=== PATIENT | male | born 1955 | race Caucasian/White ===

== ENCOUNTER 2025-05-27 19:33 | Inpatient (IN) ==
[~2025-05-27 19:33] MED LIST: ETOMIDATE 2 MG/ML 20 ML VIAL IV ONE; ROCURONIUM BROMIDE 10 MG/ML 5 ML VIAL IV ONE
[2025-05-27] MEDS: OPTIRAY 320 125ml IV ONE (20:15)
[2025-05-27 20:18] LABS: Alanine Aminotransferase 370.0 U/L (7-52); Albumin Globulin Ratio 1.2 (0.9-2); Alkaline Phosphatase 76.0 U/L (34-104); Anion Gap 15.0 (3-11); Bilirubin,Total 0.9 mg/dl (0.2-1.0); Blood Urea Nitrogen 21.0 mg/dl (6-23); Calcium 9.2 mg/dl (8.6-10.3); Carbon Dioxide 22.0 mmol/L (21-32); Chloride 107.0 mmol/L (98-107); Creatine Kinase 154.0 U/L (30-223); Creatinine Clr Calc Pharmacy 70.8 ml/min; Globulin 3.7 gm/dl (2.5-4.0); Glucose 164.0 mg/dl (70-99(Fasting)); Lipase 82.0 U/L (11-82); Magnesium 2.3 mg/dl (1.7-2.4); Potassium 3.4 mmol/L (3.5-5.1); Sodium 144.0 mmol/L (136-145); Total Protein 8.1 gm/dl (6.0-8.3)
[2025-05-27 20:19] LABS: Hematocrit (blood only) 43.2 % (42.0-52.0); Hemoglobin 14.1 g/dl (14.0-18.0); Mean Corpuscular Hemoglobin 29.9 pg (25.0-34.0); Mean Corpuscular Volume 91.5 fL (80.0-100.0); Platelet Count 122 K/uL (130-400); RDW Standard Deviation 48.7 fL (36.4-46.3); Red Blood Count 4.72 M/uL (4.70-6.10); White Blood Count 22.77 K/ul (4.8-10.8)
--- NOTE | 2025-05-27 20:27 | CT Scan Report ---
Exam(s): CT HEAD Without Contrast EXAM: CT Head Without Intravenous Contrast CLINICAL HISTORY: Trauma TECHNIQUE: Axial computed tomography images of the head/brain without intravenous contrast. CTDI is 37.61 mGy and DLP is 702.46 mGy-cm. Automated exposure control was utilized for the study. A dose lowering technique was utilized adhering to the principles of ALARA. COMPARISON: No relevant prior studies available. FINDINGS: Brain: No intracranial hemorrhage, mass-effect or midline shift. No abnormal extra axial fluid. No evidence of acute infarct. Mild periventricular white matter hypodensities are most consistent with chronic microangiopathy. Ventricles: Unremarkable. No ventriculomegaly. Bones/joints: Unremarkable. No acute fracture. Soft tissues: There is a large right posterior scalp hematoma. Sinuses: Near-complete opacification of the left maxillary sinus with mucous. Mastoid air cells: Unremarkable as visualized. No mastoid effusion. IMPRESSION: 1. No acute intracranial finding. 2. There is a large right posterior scalp hematoma. 3. Near-complete opacification of the left maxillary sinus with mucous. This raises the suspicion for sinusitis. Electronically signed by: Liza Weber MD 05/27/25 20:26 PM
[2025-05-27] MEDS: PROPOFOL IV EMULSION 10 MG/ML 100 ML VIAL IV ONE (20:28)
[2025-05-27] MEDS: ETOMIDATE 2 MG/ML 20 ML VIAL IV ONE (20:29)
[2025-05-27] MEDS: ROCURONIUM BROMIDE 10 MG/ML 5 ML VIAL IV ONE (20:30)
[2025-05-27] MEDS: STAT IV Infusion **Titration per Protocol STA (20:31)
[2025-05-27 20:33] LABS: Immature Granulocytes # (auto) 1.12 K/uL (0.01-0.20); Immature Granulocytes % (auto) 4.9 %; Thyroid Stimulating Hormone 9.899 uIu/ml (0.300-4.500)
--- NOTE | 2025-05-27 20:52 | CT Scan Report ---
Exam(s): CT C SPINE EXAM: CT Cervical Spine Without Intravenous Contrast CLINICAL HISTORY: Fall, trauma. TECHNIQUE: Axial computed tomography images of the cervical spine without intravenous contrast. CTDI is 26.96 mGy and DLP is 563.17 mGy-cm. Automated exposure control was utilized for the study. A dose lowering technique was utilized adhering to the principles of ALARA. COMPARISON: No relevant prior studies available. FINDINGS: Vertebrae: Degenerative changes of the cervical spine are noted. No acute fracture. No malalignment. Discs/spinal canal/neural foramina: No acute findings. No significant spinal canal stenosis. Soft tissues: Unremarkable. IMPRESSION: No acute finding of the cervical spine. Electronically signed by: Liza Weber MD 05/27/25 20:51 PM
[2025-05-27] MEDS: RAPID SEQUENCE INDUCTION BAG ONE (21:00)
--- NOTE | 2025-05-27 21:02 | CT Scan Report ---
Exam(s): CTA CHEST IV Amt: 120ml EXAM: CT Angiography Chest With Intravenous Contrast CLINICAL HISTORY: Cardiac arrest TECHNIQUE: Axial computed tomographic angiography images of the chest with intravenous contrast. MIPS images were created and reviewed. CTDI is 11. 87 mGy and DLP is 5.94 mGy-cm. Automated exposure control was utilized for the study. A dose lowering technique was utilized adhering to the principles of ALARA. MIP reconstructed images were created and reviewed. COMPARISON: No relevant prior studies available. FINDINGS: Pulmonary arteries: Dilated main pulmonary artery measuring 3.4 cm. No pulmonary embolus. Aorta: Mild atherosclerosis. No aneurysm. Lungs: Dependent airspace opacities could represent atelectasis, can not exclude aspiration. Interseptal thickening is concerning for pulmonary edema. Pleural space: Unremarkable. No significant effusion. No pneumothorax. Heart: Dense coronary artery calcifications are present. No cardiomegaly. No significant pericardial effusion. No evidence of RV dysfunction. Bones/joints: Nondisplaced rib fractures of the anterior left 3rd through 6th ribs. There are degenerative changes of the spine. No acute fracture. Soft tissues: Unremarkable. Lymph nodes: Unremarkable. No enlarged lymph nodes. Tubes, lines and devices: The endotracheal tube is in good position. IMPRESSION: 1. No pulmonary embolus. 2. Dependent airspace opacities could represent atelectasis, can not exclude aspiration. 3. Interseptal thickening is concerning for pulmonary edema. 4. Nondisplaced rib fractures of the anterior left 3rd through 6th ribs. 5. There is dilation of the pulmonary arteries. This is concerning for pulmonary artery hypertension. 6. Dense coronary artery calcifications are present. Electronically signed by: Liza Weber MD 05/27/25 21:01 PM
--- NOTE | 2025-05-27 21:21 | XRay Report ---
EXAM: Portable AP chest radiograph TECHNIQUE: AP portable radiograph of the chest was obtained. INDICATION: Shortness of breath Comparison: None. FINDINGS: LINES and TUBES: Endotracheal tube with tip 2.4 cm above the vinicius. CARDIOVASCULAR: Cardiac silhouette is enlarged in size. LUNGS/PLEURA: Mild interstitial pulmonary edema. Patchy densities of the lungs may represent an airspace process including pneumonia and pulmonary edema. Small pleural fluids may be present. No discernible pneumothorax. OSSEOUS/OTHER: No displaced acute osseous process identified. IMPRESSION: Congestive changes of the cardiovascular system as above. Patchy densities of the lungs may represent an airspace process including pneumonia and pulmonary edema. Electronically signed by Hari Vitale 05-27-2025 9:20 PM
[2025-05-27 21:27] LABS: INR 1.2 (0.9-1.1); Partial Thromboplastin Time 24 Seconds (21-31); Prothrombin Time 12.4 Seconds (9.0-12.0)
--- NOTE | 2025-05-27 21:32 | History & Physical Report ---
Date of Service May 27, 2025 Assessment & Plan (1) Cardiac arrest: (2) On mechanically assisted ventilation: (3) Sinus tachycardia: (4) Left bundle branch block: (5) HTN (hypertension): (6) Laceration of head: (7) Elevated LFTs: Plan Patient is a 70 y/o M admitted after experiencing cardiac arrest in the [employer] game. Currently mechanically ventilated and sedated. #Cardiac arrest #LBBB, unsure if new Exact cause at this time is unknown but could be related to ACS and, given defibrillation x 3, could also suspect ventricular arrhythmia Initial troponin of 50.6 which increased to >2000 in 2 hour repeat. Unable to obtain medical history from patient, but patient's brother states that only medical history he has knowledge of is of sarcoidosis and hypertension Discussed with android ui developer who advised that no urgent catheterization is required, and recommended a TTE be done in the morning and patient to be started on heparin drip. Both of these were ordered. Cardiology consulted. Will appreciate their recommendations. Will admit to ICU #Mechanically ventilated Intubated in the field Given chest CT and chest x-ray findings, possible that patient may have aspirated or had a developing infectious process Admit to ICU #Head trauma // Scalp laceration Noted to have 2 posterior scalp lacerations consequent of hitting his head when he collapsed Mic placed to 1 laceration in the ICU, the other laceration to be allowed to heal by secondary intention #Rib fractures Fractures on anterior left side from 3rd6th ribs noted on chest CTA; no PTX Will likely need pain control once he is more awake #HTN Unsure if he takes any medications at home Patient hypotensive, possibly due to sedation as his BP was elevated while in the ED. Currently on Levophed. #Sarcoidosis Noted by patient's brother; further hx unknown History of Present Illness Chief Complaint: Cardiac arrest Primary Care Provider: NO PCP Patient is a 70-year-old male with no known medical history save for hypertension endorsed by patient's brother who came to the emergency department via EMS after being found in cardiac arrest in a [employer] game. Patient had been walking in his usual state of health earlier in the evening, and then suddenly fainted with impact to posterior aspect of his head. Someone noticed him fall and went to check on him and found that he had no pulse, and immediately started CPR. After EMS arrived, patient was defibrillated x 3 after which ROSC was obtained and patient transported to emergency department. History is limited as patient is unresponsive and mechanically ventilated. Patient alone in ED. Patient has a brother (who is a physician) who will be driving over from [place] and another brother coming from [place]. He had another brother that unfortunately approximately a month ago. Labs/Imaging: CBC with leukocytosis of 22.77 with neutrophilic predominance, hemoglobin of 14.1, platelets of 122. CMP without significant electrolyte abnormality save for mild hypokalemia, creatinine 1.26. Blood sugar 164. Magnesium of 2.3. AST elevated at 244, ALT also elevated at 370, normal alk phos. TSH elevated at 9.899 and free T4 of 0.61. Troponin elevated at 50.6 with ~5-hour repeat showing 2314.5. C-spine CT unremarkable. Chest CTA w/o PE but s howing possible dense coronary artery calcification, possible pulmonary edema and rib fractures on the anterior left side from 3rd6th ribs. Head CT without acute changes/hemorrhage/SAH, and showing right posterior scalp hematoma. Allergies Allergy/AdvReac Type Severity Reaction Status Date / Time Unable to Assess Allergy Verified 05/27/25 20:04 Home Medications Medication Instructions Recorded Confirmed Type Unobtainable 05/27/25 05/27/25 History Past Med/Surg History Problem List (Updated 05/28/25 @ 19:32 by Francisca Bates MD) Aspiration pneumonia Rhinovirus infection Cardiomyopathy Laceration of head Elevated LFTs Left bundle branch block (Acute) HTN (hypertension) Sinus tachycardia (Acute) On mechanically assisted ventilation (Acute) Cardiac arrest (Acute) Medical History Sarcoid Social History Smoking Status: Unknown if ever smoked Hx Alcohol Use: Yes Hx Substance Use: No Preferred Language: Divehi Communication Ability: intubated Communication Ability Comment: intubated and sedated Casing Builder Required: No Beliefs That Will Affect Care: None Current Living Situation: Alone Other Information That Helps Us Care for You: No Feels Safe at Home: Yes Assistive Devices: None Review of Systems Review of Systems: As per HPI Physical Exam Physical Exam: GENERAL: patient sedated and not responding to questions, does withdraw from painful stimuli and pupils equal and reactive, febrile HEAD: laceration in posterior scalp with mic in place. THROAT: normal to visual inspection CHEST: symmetric chest expansions with respirations CARDIO: tachycardic, no r/m/g PULMONARY: mechanically ventilated GI: soft, nondistended EXTREMITIES: no swelling in b/l LE, no obvious deformities noted Results & Data Results & Data Vital Signs (Past 12 Hours) Vital Signs Temp Pulse Resp BP Pulse Ox O2 Del Method FiO2 05/27/25 21:18 38.0 C H 131 H 20 94 05/27/25 21:15 170/110 H 05/27/25 21:15 170/110 H 05/27/25 21:15 170/110 H 05/27/25 21:01 38 C H 05/27/25 21:00 180/115 H 05/27/25 21:00 180/115 H 05/27/25 20:51 182/115 H 05/27/25 20:51 132 H 182/115 H 100 05/27/25 20:41 16 90 05/27/25 20:30 191/123 H 05/27/25 20:30 191/123 H 05/27/25 20:17 34.6 C L 05/27/25 20:15 Mechanical Vent 05/27/25 20:14 199/129 H 05/27/25 19:51 116 H 23 99 05/27/25 19:49 164/93 H 05/27/25 19:49 164/93 H 05/27/25 19:48 107 H 31 H 99 05/27/25 19:42 133 H 25 H 100 05/27/25 19:41 100 05/27/25 19:41 Ambu-Bag 05/27/25 19:40 123 H 05/27/25 19:39 209/118 H 05/27/25 19:39 209/118 H 05/27/25 19:15 129 H 209/118 H 100 Ambu-Bag Critical Care Time 42 minutes Supervising Physician Co-Signing Physician Notes Attending addendum: I have physically seen this patient, have supervised the medical residents activities, and agree with the H&P unless as otherwise noted. Assessment and Plan: The patient is a 70-year-old male who presented to the emergency department as an [id number] cardiac arrest, underwent defibrillation x 3, was intubated in the field, and obtained ROSC. [id number] cardiac arrest- Intubated in the field Underwent defibrillation x 3 in the field Obtained ROSC Upon arrival to the emergency department patient continued on mechanical ventilation, CT chest and x-rays were ordered, with reading of potential aspiration or developing infectious process. Initial troponin was 50.6, which increased to greater than 2002-hour repeat director smb sales Baldev suggested no urgent cardiac catheterization was was required The patient will be admitted to the ICU for serial cardiac enzymes, serial EKG's, cardiac rhythm monitoring and a 2-D echocardiogram with Dopplers. Head trauma/scalp laceration- Stapled and closed in the ED/ICU Rib fractures- X-rays noted anterior left side with fractures from the 3rd through 6th ribs without pneumothorax Will be managed with more direct pain control when patient is more alert Sarcoidosis- Unclear enrolled at this point declining at this time Resident Activity Tracking Resident Involvement: Resident Care Provided Care Provided: Adult Hospital Medicine
[2025-05-27] MEDS: PROPOFOL BOLUS FROM BAG IV PRN (21:42)
--- NOTE | 2025-05-27 22:18 | Emergency Department Note ---
Impression & Plan Cardiac arrest, On mechanically assisted ventilation, Left bundle branch block, Sinus tachycardia ED Provider Note NAME: CORNELIO PEREZ III AGE: 70 SEX: M : 1955 ARRIVES VIA: Ambulance INFORMANT: Patient, ED PROVIDER(S): Frank Mai MD CHIEF COMPLAINT: Cardiac arrest HPI: This is a 70-year-old male presenting postcardiac arrest. EMS physician tells these history. Patient was reportedly walking at the football game when he had a sudden onset collapse. Bystanders started CPR and he was shocked by BLS with an AED 3 times with achievement of ROSC. He had an EKG done there that showed a left bundle branch block and sinus tachycardia. He did have into the back of his skull. He was not intubated was ventilated with an Igel airway. He had some possible spontaneous movement. He was started with amiodarone 150 mg by EMS. ROS: Unable to obtain PHYSICAL EXAMINATION: General: Overbreathing, Head: Large posterior hematoma Eyes: Eyes 4 mm, reactive, do not track or respond to threat Ear, nose, throat: Normal external exam Neck: In c-collar Respiratory: lungs clear to auscultation bilaterally Cardiovascular: Tachycardic regular rate/rhythm, no murmur GI: soft, Extremities: No obvious deformity Neuro: GCS 3 Skin: Warm, dry, and intact MEDICAL DECISION MAKING: This is a 70-year-old male presenting postcardiac arrest. At this time patient has no clear neurologic status. He is GCS 3. There was a possible episode where he may have had decorticate posturing. Due to airway concerns, will intubate the patient as he has a GCS 3. - Patient intubated successfully as below. - Patient sent to CAT scan imaging. Shows no intracranial hemorrhage, does show pulm hypertension but otherwise no PE. No cervical spine fracture. - Basic blood work is reviewed showing leukocytosis to 22. Plate count 122. Sodium 146, potassium 3.4, anion gap 15 - Elevated transaminitis with a troponin elevation of 50.6. - Patient's brother calls in a few hours later. He is currently in [place] and to the patient generally healthy aside from being mildly overweight with sarcoidosis. Otherwise no significant medical history, cardiac disease. - ECG independently interpreted by me with sinus tachycardia, wide-complex, short RI, left bundle branch block, no Sgarbossa criteria, no ST segment elevations consistent with STEMI criteria Endotracheal Intubation Indication GCS 3, airway protection The patient was on 100% oxygen via NRB prior to the procedure. Suction, airway equipment, RSI drugs, respiratory equipment, and appropriate personnel were prepared prior to the initiation of the procedure. A time out was taken. Induction was performed with etomidate, rocuronium. After observing the clinical benefit of the medications, the airway was easily visualized utilizing a video laryngoscopy. A 7.5 size ETT tube was placed atraumatically to 26 cm using standard technique. The cuff inflated without signs of malfunction. There were bilateral breath sounds, positive colormetric change, no gastric sounds, a good capnography waveform, and post procedure pulse oximetry was 99%. Post intubation sedation and paralysis was administered using propofol. There were no complications. Differential diagnosis: ACS, PE, electro disturbance, anemia Independent History obtained from: EMS Diagnostics interpreted by me: ECG: See above Cardiac Monitoring: An order was placed for continuous cardiac monitoring. The monitor shows a rate of 94 with sinus rhythm. Critical Care Note: I have personally spent 67 minutes of critical care time in the direct management of this patient. This includes bedside care, interpretation of diagnostic studies, and testing, discussion with consultants, patient, and family members, and other required patient management activities. This 67 minutes is in excess of all separately billable procedures. Past Med/Surg History Problem List (Updated 05/27/25 @ 23:46 by Frank Mai MD) Left bundle branch block (Acute) HTN (hypertension) Sinus tachycardia (Acute) On mechanically assisted ventilation (Acute) Cardiac arrest (Acute) Social History Smoking Status: Unknown if ever smoked Feels Safe at Home: Yes Allergies Allergies Allergy/AdvReac Type Severity Reaction Status Date / Time Unable to Assess Allergy Verified 05/27/25 20:04 Home Meds Home Medications Medication Instructions Recorded Confirmed Unobtainable 05/27/25 05/27/25 Results & Data (ED) Vital Signs Vital Signs - 24 hr 05/27/25 19:15 05/27/25 19:39 05/27/25 19:39 Temperature Temperature Source Pulse Rate 129 H Pulse Rate from SpO2 Sensor Respiratory Rate Blood Pressure 209/118 H 209/118 H 209/118 H Blood Pressure Mean 148 166 166 Pulse Oximetry 100 Oxygen Delivery Method Ambu-Bag Fraction of Inspired Oxygen Sepsis Recent Fever Within 48 Hours No Sepsis New/Unexplained Change in Mental Status No Sepsis Action Taken by Nursing No Action Required End-Tidal CO2 05/27/25 19:40 05/27/25 19:41 05/27/25 19:41 Temperature Temperature Source Pulse Rate 123 H Pulse Rate from SpO2 Sensor Respiratory Rate Blood Pressure Blood Pressure Mean Pulse Oximetry 100 Oxygen Delivery Method Ambu-Bag Fraction of Inspired Oxygen Sepsis Recent Fever Within 48 Hours Sepsis New/Unexplained Change in Mental Status Sepsis Action Taken by Nursing End-Tidal CO2 05/27/25 19:42 05/27/25 19:48 05/27/25 19:49 Temperature Temperature Source Pulse Rate 133 H 107 H Pulse Rate from SpO2 Sensor 130 H 107 H Respiratory Rate 25 H 31 H Blood Pressure 164/93 H Blood Pressure Mean 111 Pulse Oximetry 100 99 Oxygen Delivery Method Fraction of Inspired Oxygen Sepsis Recent Fever Within 48 Hours Sepsis New/Unexplained Change in Mental Status Sepsis Action Taken by Nursing End-Tidal CO2 05/27/25 19:49 05/27/25 19:51 05/27/25 20:14 Temperature Temperature Source Pulse Rate 116 H Pulse Rate from SpO2 Sensor 117 H Respiratory Rate 23 Blood Pressure 164/93 H 199/129 H Blood Pressure Mean 111 146 Pulse Oximetry 99 Oxygen Delivery Method Fraction of Inspired Oxygen Sepsis Recent Fever Within 48 Hours Sepsis New/Unexplained Change in Mental Status Sepsis Action Taken by Nursing End-Tidal CO2 05/27/25 20:15 05/27/25 20:17 05/27/25 20:30 Temperature 34.6 C L Temperature Source Trent Cath ( Temp Sensing) Pulse Rate Pulse Rate from SpO2 Sensor Respiratory Rate Blood Pressure 191/123 H Blood Pressure Mean 136 Pulse Oximetry Oxygen Delivery Method Mechanical Vent Fraction of Inspired Oxygen Sepsis Recent Fever Within 48 Hours Sepsis New/Unexplained Change in Mental Status Sepsis Action Taken by Nursing End-Tidal CO2 05/27/25 20:30 05/27/25 20:41 05/27/25 20:51 Temperature Temperature Source Pulse Rate 132 H Pulse Rate from SpO2 Sensor Respiratory Rate 16 Blood Pressure 191/123 H 182/115 H Blood Pressure Mean 136 134 Pulse Oximetry 100 Oxygen Delivery Method Fraction of Inspired Oxygen 90 Sepsis Recent Fever Within 48 Hours Sepsis New/Unexplained Change in Mental Status Sepsis Action Taken by Nursing End-Tidal CO2 44 05/27/25 20:51 05/27/25 21:00 05/27/25 21:00 Temperature Temperature Source Pulse Rate Pulse Rate from SpO2 Sensor Respiratory Rate Blood Pressure 182/115 H 180/115 H 180/115 H Blood Pressure Mean 134 130 130 Pulse Oximetry Oxygen Delivery Method Fraction of Inspired Oxygen Sepsis Recent Fever Within 48 Hours Sepsis New/Unexplained Change in Mental Status Sepsis Action Taken by Nursing End-Tidal CO2 05/27/25 21:01 05/27/25 21:15 05/27/25 21:15 Temperature 38 C H Temperature Source Trent Cath ( Temp Sensing) Pulse Rate Pulse Rate from SpO2 Sensor Respiratory Rate Blood Pressure 170/110 H 170/110 H Blood Pressure Mean 127 127 Pulse Oximetry Oxygen Delivery Method Fraction of Inspired Oxygen Sepsis Recent Fever Within 48 Hours Sepsis New/Unexplained Change in Mental Status Sepsis Action Taken by Nursing End-Tidal CO2 05/27/25 21:15 05/27/25 21:18 05/27/25 21:30 Temperature 38.0 C H 38.0 C H Temperature Source Pulse Rate 131 H 129 H Pulse Rate from SpO2 Sensor 132 H 129 H Respiratory Rate 20 24 Blood Pressure 170/110 H Blood Pressure Mean 127 Pulse Oximetry 94 95 Oxygen Delivery Method Fraction of Inspired Oxygen Sepsis Recent Fever Within 48 Hours Sepsis New/Unexplained Change in Mental Status Sepsis Action Taken by Nursing End-Tidal CO2 44 37 05/27/25 21:30 05/27/25 21:30 05/27/25 21:30 Temperature Temperature Source Pulse Rate Pulse Rate from SpO2 Sensor Respiratory Rate Blood Pressure 143/95 H 143/95 H 143/95 H Blood Pressure Mean 109 109 109 Pulse Oximetry Oxygen Delivery Method Fraction of Inspired Oxygen Sepsis Recent Fever Within 48 Hours Sepsis New/Unexplained Change in Mental Status Sepsis Action Taken by Nursing End-Tidal CO2 Laboratory Data 05/27/25 19:49 05/27/25 19:49 Lab Results 05/27/25 05/27/25 05/27/25 Range/Units 19:49 19:53 20:40 WBC 22.77 H (4.8-10.8) K/ul RBC 4.72 (4.70-6.10) M/uL Hgb 14.1 (14.0-18.0) g/dl POC Hgb 15.6 (14.0-18.0) g/dl Hct 43.2 (42.0-52.0) % POC Hct 46 (42-52) % MCV 91.5 (80.0-100.0) fL MCH 29.9 (25.0-34.0) pg MCHC 32.6 (32.0-36.0) g/dL RDW Std Deviation 48.7 H (36.4-46.3) fL RDW Coeff of Santosh 14.6 H (11.5-14.5) % Plt Count 122 L (130-400) K/uL MPV 12.6 H (9.4-12.4) fL Immature Gran % (Auto) 4.9 % Neut % (Auto) 65.1 % Lymph % (Auto) 18.3 % [place] % (Auto) 10.7 % Eos % (Auto) 0.7 % Baso % (Auto) 0.3 % Neut # (Auto) 14.81 H (1.40-6.50) K/uL Lymph # (Auto) 4.17 H (1.20-3.40) K/uL [place] # (Auto) 2.44 H (0.11-0.59) K/uL Eos # (Auto) 0.16 (0.00-0.50) K/uL Baso # (Auto) 0.07 (0.00-0.20) K/uL Immature Gran # (Auto) 1.12 H (0.01-0.20) K/uL Absolute Nucleated RBC 0.03 (0.00-0.12) K/uL Nucleated RBC % (auto) 0.1 % PT Cancelled 12.4 H INR Cancelled 1.2 H APTT Cancelled 24 PTT Ratio Cancelled 0.9 POC Sodium 146 H (135-144) mmol/L Sodium 144 (136-145) mmol/L POC Potassium 3.4 (3.3-5.0) mmol/L Potassium 3.4 L (3.5-5.1) mmol/L POC Chloride 107 (101-112) mmol/L Chloride 107 (98-107) mmol/L Carbon Dioxide 22 (21-32) mmol/L POC Total CO2 21 L (24-31) mmol/L Anion Gap 15 H (3-11) POC Anion Gap 23.0 (16-25) mmol/L POC BUN 22 H (7-18) mg/dl BUN 21 (6-23) mg/dl Creatinine 1.26 (0.6-1.4) mg/dl POC Creatinine 1.3 (0.6-1.3) mg/dl Est Cr Clr Drug Dosing 70.8 ml/min eGFR 62.13 BUN/Creatinine Ratio 16.7 (10-20) Glucose 164 H (70-99(Fasting)) mg/dl POC Glucose (other) 165 H (70-99) mg/dl Calcium 9.2 (8.6-10.3) mg/dl POC Ioniz Calcium Sukhdev 1.12 (1.12-1.32) mmol/l Magnesium 2.3 (1.7-2.4) mg/dl Total Bilirubin 0.9 (0.2-1.0) mg/dl AST 244 H (13-39) U/L ALT 370 H (7-52) U/L Alkaline Phosphatase 76 (34-104) U/L Total Creatine Kinase 154 (30-223) U/L Troponin I High Sens 50.6 H* (0-20) pg/ml B-Natriuretic Peptide 70 (0-100) pg/ml Total Protein 8.1 (6.0-8.3) gm/dl Albumin 4.4 (3.4-5.0) gm/dl Globulin 3.7 (2.5-4.0) gm/dl Albumin/Globulin Ratio 1.2 (0.9-2) Lipase 82 (11-82) U/L TSH 9.899 H (0.300-4.500) uIu/ml Free T4 0.61 (0.61-1.60) ng/dl Ethyl Alcohol mg/dL < 10.0 (<10.0) mg/dl Administered Medications Propofol (Diprivan) 1,000 mg in 100 mls @ 12.792 mls/hr IV .Q7H50M [facility]; Protocol Stop: 05/30/25 19:59 Last Titration: 05/27/25 21:54 Dose: 20 mcg/kg/min, 12.8 mls/hr Documented By: Titration: 05/27/25 21:50 Dose: 25 mcg/kg/min, 16 mls/hr Documented By: Titration: 05/27/25 21:41 Dose: 30 mcg/kg/min, 19.2 mls/hr Documented By: Admin: 05/27/25 20:27 Dose: 20 mcg/kg/min, 12.8 mls/hr Documented By: MARY Co-signed By: ANJALI Propofol (Propofol Bolus From Bag) 20 mg IV Q5M PRN PRN Reason: Sedation Stop: 05/30/25 19:59 Last Admin: 05/27/25 21:42 Dose: 10 mg Documented By: MARY Co-signed By: CHRISTIANO Discontinued Medications Etomidate (Etomidate 2 Mg/Ml 20 Ml Vial) 20 mg IV ONCE ONE Stop: 05/27/25 20:29 Last Admin: 05/27/25 20:29 Dose: 20 mg Documented By: MARY Fentanyl Citrate (Fentanyl Citrate Pf 100 Mcg/2 Ml Vial) 50 mcg IV NOW ONE Stop: 05/27/25 21:40 Last Admin: 05/27/25 21:43 Dose: 50 mcg Documented By: MARY Fentanyl Citrate (Fentanyl Citrate Pf 100 Mcg/2 Ml Vial) Confirm Administered Dose 100 mcg .ROUTE .STK-MED ONE Stop: 05/27/25 21:40 Last Admin: 05/27/25 21:44 Dose: Not Given Documented By: MARY Ioversol (Optiray 320 125ml) 120 ml IV ONCE ONE Stop: 05/27/25 20:16 Last Admin: 05/27/25 20:15 Dose: 120 ml Documented By: VÍCTOR Miscellaneous (Rapid Sequence Induction Bag) Confirm Administered Dose 1 each N/A .STK-MED ONE Stop: 05/27/25 19:41 Last Admin: 05/27/25 21:00 Dose: Not Given Documented By: MARY Godfreyaneous (Stat Iv Infusion Titration Per Protocol) 1 each N/A NOW STA Stop: 05/27/25 20:01 Last Admin: 05/27/25 20:31 Dose: Not Given Documented By: MARY Propofol (Propofol Iv Emulsion 10 Mg/Ml 100 Ml Vial) Confirm Administered Dose 1,000 mg IV .STK-MED ONE Stop: 05/27/25 20:02 Last Admin: 05/27/25 20:28 Dose: Not Given Documented By: MARY Rocuronium Lorane (Rocuronium Lorane 10 Mg/Ml 5 Ml Vial) 100 mg IV ONCE ONE Stop: 05/27/25 20:30 Last Admin: 05/27/25 20:30 Dose: 100 mg Documented By: MARY Co-signed By: ANJALI Imaging Data Radiologist's Impression: Chest X-Ray 05/27/25 19:41 EXAM: Portable AP chest radiograph TECHNIQUE: AP portable radiograph of the chest was obtained. INDICATION: Shortness of breath Comparison: None. FINDINGS: LINES and TUBES: Endotracheal tube with tip 2.4 cm above the vinicius. CARDIOVASCULAR: Cardiac silhouette is enlarged in size. LUNGS/PLEURA: Mild interstitial pulmonary edema. Patchy densities of the lungs may represent an airspace process including pneumonia and pulmonary edema. Small pleural fluids may be present. No discernible pneumothorax. OSSEOUS/OTHER: No displaced acute osseous process identified. IMPRESSION: Congestive changes of the cardiovascular system as above. Patchy densities of the lungs may represent an airspace process including pneumonia and pulmonary edema. Electronically signed by Hari Vitale 05-27-2025 9:[address] 05/27/25 19:59 Exam(s): CT C SPINE EXAM: CT Cervical Spine Without Intravenous Contrast CLINICAL HISTORY: Fall, trauma. TECHNIQUE: Axial computed tomography images of the cervical spine without intravenous contrast. CTDI is 26.96 mGy and DLP is 563.17 mGy-cm. Automated exposure control was utilized for the study. A dose lowering technique was utilized adhering to the principles of ALARA. COMPARISON: No relevant prior studies available. FINDINGS: Vertebrae: Degenerative changes of the cervical spine are noted. No acute fracture. No malalignment. Discs/spinal canal/neural foramina: No acute findings. No significant spinal canal stenosis. Soft tissues: Unremarkable. IMPRESSION: No acute finding of the cervical spine. Electronically signed by: Liza Weber MD 05/27/25 20:51 PM Chest CTA 05/27/25 19:59 Exam(s): CTA CHEST IV Amt: 120ml EXAM: CT Angiography Chest With Intravenous Contrast CLINICAL HISTORY: Cardiac arrest TECHNIQUE: Axial computed tomographic angiography images of the chest with intravenous contrast. MIPS images were created and reviewed. CTDI is 11. 87 mGy and DLP is 5.94 mGy-cm. Automated exposure control was utilized for the study. A dose lowering technique was utilized adhering to the principles of ALARA. MIP reconstructed images were created and reviewed. COMPARISON: No relevant prior studies available. FINDINGS: Pulmonary arteries: Dilated main pulmonary artery measuring 3.4 cm. No pulmonary embolus. Aorta: Mild atherosclerosis. No aneurysm. Lungs: Dependent airspace opacities could represent atelectasis, can not exclude aspiration. Interseptal thickening is concerning for pulmonary edema. Pleural space: Unremarkable. No significant effusion. No pneumothorax. Heart: Dense coronary artery calcifications are present. No cardiomegaly. No significant pericardial effusion. No evidence of RV dysfunction. Bones/joints: Nondisplaced rib fractures of the anterior left 3rd through 6th ribs. There are degenerative changes of the spine. No acute fracture. Soft tissues: Unremarkable. Lymph nodes: Unremarkable. No enlarged lymph nodes. Tubes, lines and devices: The endotracheal tube is in good position. IMPRESSION: 1. No pulmonary embolus. 2. Dependent airspace opacities could represent atelectasis, can not exclude aspiration. 3. Interseptal thickening is concerning for pulmonary edema. 4. Nondisplaced rib fractures of the anterior left 3rd through 6th ribs. 5. There is dilation of the pulmonary arteries. This is concerning for pulmonary artery hypertension. 6. Dense coronary artery calcifications are present. Electronically signed by: Liza Weber MD 05/27/25 21:[address] 05/27/25 19:59 Exam(s): CT HEAD Without Contrast EXAM: CT Head Without Intravenous Contrast CLINICAL HISTORY: Trauma TECHNIQUE: Axial computed tomography images of the head/brain without intravenous contrast. CTDI is 37.61 mGy and DLP is 702.46 mGy-cm. Automated exposure control was utilized for the study. A dose lowering technique was utilized adhering to the principles of ALARA. COMPARISON: No relevant prior studies available. FINDINGS: Brain: No intracranial hemorrhage, mass-effect or midline shift. No abnormal extra axial fluid. No evidence of acute infarct. Mild periventricular white matter hypodensities are most consistent with chronic microangiopathy. Ventricles: Unremarkable. No ventriculomegaly. Bones/joints: Unremarkable. No acute fracture. Soft tissues: There is a large right posterior scalp hematoma. Sinuses: Near-complete opacification of the left maxillary sinus with mucous. Mastoid air cells: Unremarkable as visualized. No mastoid effusion. IMPRESSION: 1. No acute intracranial finding. 2. There is a large right posterior scalp hematoma. 3. Near-complete opacification of the left maxillary sinus with mucous. This raises the suspicion for sinusitis. Electronically signed by: Liza Weber MD 05/27/25 20:26 PM Discharge Plan Visit Data Chief Complaint: Cardiac Arrest/CPR Stated Complaint: POST CARDIAC ARREST ED Provider: Frank Mai Discharge Problem: Cardiac arrest, On mechanically assisted ventilation, Left bundle branch block, Sinus tachycardia Patient Disposition: Admitted As Inpatient Condition: Critical Discharge Instructions Interventions: ED Discharge Assessment Last Done: 05/27/25 23:25
[2025-05-27] MEDS ORDERED: STAT IV Infusion **Titration per Protocol STA (23:22)
[2025-05-27] MEDS ORDERED: DIPHTHER/TETAN/PERTUS Vaccine (Tdap, Adol/Adult) 0.5mL IM ONE (23:44)
[2025-05-28] MEDS ORDERED: STAT IV Infusion **Titration per Protocol STA
--- NOTE | 2025-05-28 00:08 | Critical Care Consultation ---
Date of Consultation May 28, 2025 Assessment & Plan (1) Cardiac arrest: (2) Left bundle branch block: (3) Elevated LFTs: (4) On mechanically assisted ventilation: (5) Laceration of head: Plan Reason Critically Ill: 70 YOM out of hospital cardiac arrest with ROSC following defibrillation x3. Neuro - Head laceration, sedation for mechanical ventilation, CAM ICU: [facility] - Patient with head strike that occurred when he collapsed- head CT non con- no acute hemorrhage/SDH/SAH, large scalp hematoma. - scalp laceration x2- closure of 1 scalp laceration with sylvia in the ICU, other laceration/abrasion will close by secondary closure secondary to hematoma and very irregular borders - sylvia can be removed after 7 days--- 20september - Will follow neurological exams and pupil exams with pupillometer q2 hours- too early at this time for prognostication - but over breaths vent, did attempt to open eyes, and gag is present - possible post concussive as well - If no improvement consider advanced imaging with MRI - Neuroprotection post arrest- normothermia- 35-37.5 - Sedation- propofol, and fentanyl- daily SBT, if extubated- pain control for rib fractures will be required Cardiac - out of hospital cardiac arrest, LBBB, - Cardiac arrest with ROSC- likely ventricular in nature as AED did recommend shock- defibrillated x3 with return of ROSC - amiodarone 150mg bolus completed- will continue with amiodarone infusion until further workup evaluation completed - correctional cook updated by admitting team- no urgent cath at this time - ECHo in am - Heparin infusion - Cause of arrest at this time is unclear- could possibly be related to hx of sarcoidosis- hopefully brother will be able to provide further information on this - manage electrolytes - Trend troponin and rhythm - Vasopressors at this time secondary to sedation and hypotension - LEVOphed - CVL placed - see separate procedure note Respiratory - Required emergent intubation following cardiac arrest, likely aspiration - Minimal vent settings at this time 7.4/ - CTA chest negative for PE - Aspiration likely- follow clincally - daily SBT as appropriate - Rib fractures noted- no penumothorax GI - Elevated LFT - Elevated LFTS- possible secondary to hypoperfusion during arrest- INR 1.2 - follow daily - If LFTS trend up - will discontinue amiodarone - OGT to LIWS- NPO - initate feedings if unable to extubate in am RENAL/LYTES - No acute needs - maintain electrolytes as above - follow renal funciton - No acute needs - Trent to gravity while intubated and sedated ENDO - No acute needs - TSH 9.8- T4 06 - ICU hyperglycemic protocol HEME - No acute needs - HGB >8, transfuse for active bleeding, symptomatic - heparin as above ID - Aspiration, scalp laceration - follow clinically- at this time elevated WBC likely secondary to stress response - afebrile, will send blood cultures and urine cultures - Scalp laceration- irrigated with 3L saline, no debris noted on medical office representative CT film or CT imaging - 1 laceration closed with sylvia as above - secondary closure on abrasion/laceration - TD and TIG given LINES/IV ACCESS - PIVx2, CVL, Trent, ETT, OGT Continue use of these lines DVT PROPHYLAXIS - SCDs, Heparin infusion DISPO: ICU while intubated and sedated and requiring vasopressors. Hopeful to wake patient up in am and follow nuerological response. I have personally spent 70 minutes of critical care time in the direct management of this patient. This is a life/limb threatening event. This includes time spent evaluating patient, direct bedside care, chart review, placing orders, interpretation of diagnostic studies, discussion with consultants, patient, and family members, as well as other required patient management activities. This time is exclusive of all separately billable procedures, and teaching time and separate from and in addition to any other critical care service time. Thank you for allowing us to participate in the care of this patient. Please re robert to my attending physician's documentation for any further recommendations. History of Present Illness Reason for Consultation: Out of hospital cardiac arrest with ROSC Requesting Physician: Isiah Sam MD Attending Physician: Isiah Sam MD History of Present Illness 70 YOM with no medical records available in our system or [facility] system, he is with one previous encounter noted for sarcoidosis. Patient was brought in by EMS following cardiac arrest at the football game. Per EMS report patient was seen walking and then collapsed striking his head, CPR was reported in progress with arrival of EMS. AED was applied and shocks were recommended. Patient received Defibrillations x3 with return of ROSC. He had an IGEL placed for to manage airway during this arrest, unclear if medications were administered other than amiodarone bolus. Patient was managed in the ER with replacement of Igel with endotracheal tube. He had CT scan of head, cervical spine, CTA of chest, and CXR post intubation. Patient was noted to be moving upper extremities on arrival to ER. Patient was noted to have head laceration to back of his head and large scalp hematoma on CT scan. Patient was then presented for admission by hospitalist service. ICU was consulted, recommended discussion with interventional cardiology as patient was presumably ventricular arrest and presented with LBBB unsure of chronicity. No plans at this time for urgent evaluation by interventional cardiology, will evaluate in am, recommends heparin infusion. Patient will be brought to the ICU for continued management of ventilator, hemodynamics, and continued supportive care. 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 Beliefs That Will Affect Care: None Current Living Situation: Alone Other Information That Helps Us Care for You: No Feels Safe at Home: Yes Assistive Devices: None Review of Systems Review of Systems: unable to be evaluated secondary to intubation and sedation Physical Exam Physical Exam: PHYSICAL EXAM: Head: Laceration x2 to right scalp, abrasion with laceration and macerated edges hematoma right posterior Neuro: PEERLA brisk 3/2, did attempt to open eyes on arrival to ICU, not following commands, overbreathe ventilator and cough/gag on ETT, Chest: equal rise and fall of the chest, no accessory muscle use, no heaves or thrills, Clear to auscultation, on room air, Cardiac: Regular rate and rhythm, telemetry reviewed- LBB, skin cool and dry, cap refill <3 seconds, peripheral pulses +2 no JVD, no murmur, no edema GI: NABS x 4 quadrants, soft, nontender to palpation, no rebound, guarding or tenderness : Trent to gravity draining dilute urine Skin: no rash or erythema Results & Data Results & Data Vital Signs (Past 12 Hours) Vital Signs Temp Pulse Resp BP Pulse Ox O2 Del Method FiO2 05/27/25 22:30 38.1 C H 94 H 23 95/66 L 99 05/27/25 22:15 89/65 L 05/27/25 22:12 38.2 C H 96 H 24 97 05/27/25 22:08 90/62 L 05/27/25 22:06 38.2 C H 96 H 24 95 05/27/25 22:04 88/60 L 05/27/25 21:53 73/55 L 05/27/25 21:51 38.2 C H 98 H 23 93 05/27/25 21:49 73/61 L 05/27/25 21:49 73/61 L 05/27/25 21:48 Mechanical Vent 05/27/25 21:48 98 Mechanical Vent 05/27/25 21:30 143/95 H 05/27/25 21:30 143/95 H 05/27/25 21:30 143/95 H 05/27/25 21:30 38.0 C H 129 H 24 95 05/27/25 21:18 38.0 C H 131 H 20 94 05/27/25 21:15 170/110 H 05/27/25 21:15 170/110 H 05/27/25 21:15 170/110 H 05/27/25 21:01 38 C H 05/27/25 21:00 180/115 H 05/27/25 21:00 180/115 H 05/27/25 20:51 182/115 H 05/27/25 20:51 132 H 182/115 H 100 05/27/25 20:41 16 90 05/27/25 20:30 191/123 H 05/27/25 20:30 191/123 H 05/27/25 20:17 34.6 C L 05/27/25 20:15 Mechanical Vent 05/27/25 20:14 199/129 H 05/27/25 19:51 116 H 23 99 05/27/25 19:49 164/93 H 05/27/25 19:49 164/93 H 05/27/25 19:48 107 H 31 H 99 05/27/25 19:42 133 H 25 H 100 05/27/25 19:41 100 05/27/25 19:41 Ambu-Bag 05/27/25 19:40 123 H 05/27/25 19:39 209/118 H 05/27/25 19:39 209/118 H 05/27/25 19:15 129 H 209/118 H 100 Ambu-Bag Laboratory Results Abnormal lab results 05/27/25 05/27/25 05/27/25 Range/Units 19:49 19:53 20:40 WBC 22.77 H (4.8-10.8) K/ul RDW Std Deviation 48.7 H (36.4-46.3) fL RDW Coeff of Santosh 14.6 H (11.5-14.5) % Plt Count 122 L (130-400) K/uL MPV 12.6 H (9.4-12.4) fL Neut # (Auto) 14.81 H (1.40-6.50) K/uL Lymph # (Auto) 4.17 H (1.20-3.40) K/uL [place] # (Auto) 2.44 H (0.11-0.59) K/uL Immature Gran # (Auto) 1.12 H (0.01-0.20) K/uL PT 12.4 H (9.0-12.0) Seconds INR 1.2 H (0.9-1.1) POC Sodium 146 H (135-144) mmol/L Potassium 3.4 L (3.5-5.1) mmol/L POC Total CO2 21 L (24-31) mmol/L Anion Gap 15 H (3-11) POC BUN 22 H (7-18) mg/dl Glucose 164 H (70-99(Fasting)) mg/dl POC Glucose (other) 165 H (70-99) mg/dl AST 244 H (13-39) U/L ALT 370 H (7-52) U/L Troponin I High Sens 50.6 H* (0-20) pg/ml TSH 9.899 H (0.300-4.500) uIu/ml Diagnostic Findings Chest X-Ray 05/27/25 19:41 EXAM: Portable AP chest radiograph TECHNIQUE: AP portable radiograph of the chest was obtained. INDICATION: Shortness of breath Comparison: None. FINDINGS: LINES and TUBES: Endotracheal tube with tip 2.4 cm above the vinicius. CARDIOVASCULAR: Cardiac silhouette is enlarged in size. LUNGS/PLEURA: Mild interstitial pulmonary edema. Patchy densities of the lungs may represent an airspace process including pneumonia and pulmonary edema. Small pleural fluids may be present. No discernible pneumothorax. OSSEOUS/OTHER: No displaced acute osseous process identified. IMPRESSION: Congestive changes of the cardiovascular system as above. Patchy densities of the lungs may represent an airspace process including pneumonia and pulmonary edema. Electronically signed by Hari Vitale 05-27-2025 9:[address] 05/27/25 19:59 Exam(s): CT C SPINE EXAM: CT Cervical Spine Without Intravenous Contrast CLINICAL HISTORY: Fall, trauma. TECHNIQUE: Axial computed tomography images of the cervical spine without intravenous contrast. CTDI is 26.96 mGy and DLP is 563.17 mGy-cm. Automated exposure control was utilized for the study. A dose lowering technique was utilized adhering to the principles of ALARA. COMPARISON: No relevant prior studies available. FINDINGS: Vertebrae: Degenerative changes of the cervical spine are noted. No acute fracture. No malalignment. Discs/spinal canal/neural foramina: No acute findings. No significant spinal canal stenosis. Soft tissues: Unremarkable. IMPRESSION: No acute finding of the cervical spine. Electronically signed by: Liza Weber MD 05/27/25 20:51 PM Chest CTA 05/27/25 19:59 Exam(s): CTA CHEST IV Amt: 120ml EXAM: CT Angiography Chest With Intravenous Contrast CLINICAL HISTORY: Cardiac arrest TECHNIQUE: Axial computed tomographic angiography images of the chest with intravenous contrast. MIPS images were created and reviewed. CTDI is 11. 87 mGy and DLP is 5.94 mGy-cm. Automated exposure control was utilized for the study. A dose lowering technique was utilized adhering to the principles of ALARA. MIP reconstructed images were created and reviewed. COMPARISON: No relevant prior studies available. FINDINGS: Pulmonary arteries: Dilated main pulmonary artery measuring 3.4 cm. No pulmonary embolus. Aorta: Mild atherosclerosis. No aneurysm. Lungs: Dependent airspace opacities could represent atelectasis, can not exclude aspiration. Interseptal thickening is concerning for pulmonary edema. Pleural space: Unremarkable. No significant effusion. No pneumothorax. Heart: Dense coronary artery calcifications are present. No cardiomegaly. No significant pericardial effusion. No evidence of RV dysfunction. Bones/joints: Nondisplaced rib fractures of the anterior left 3rd through 6th ribs. There are degenerative changes of the spine. No acute fracture. Soft tissues: Unremarkable. Lymph nodes: Unremarkable. No enlarged lymph nodes. Tubes, lines and devices: The endotracheal tube is in good position. IMPRESSION: 1. No pulmonary embolus. 2. Dependent airspace opacities could represent atelectasis, can not exclude aspiration. 3. Interseptal thickening is concerning for pulmonary edema. 4. Nondisplaced rib fractures of the anterior left 3rd through 6th ribs. 5. There is dilation of the pulmonary arteries. This is concerning for pulmonary artery hypertension. 6. Dense coronary artery calcifications are present. Electronically signed by: Liza Weber MD 05/27/25 21:[address] 05/27/25 19:59 Exam(s): CT HEAD Without Contrast EXAM: CT Head Without Intravenous Contrast CLINICAL HISTORY: Trauma TECHNIQUE: Axial computed tomography images of the head/brain without intravenous contrast. CTDI is 37.61 mGy and DLP is 702.46 mGy-cm. Automated exposure control was utilized for the study. A dose lowering technique was utilized adhering to the principles of ALARA. COMPARISON: No relevant prior studies available. FINDINGS: Brain: No intracranial hemorrhage, mass-effect or midline shift. No abnormal extra axial fluid. No evidence of acute infarct. Mild periventricular white matter hypodensities are most consistent with chronic microangiopathy. Ventricles: Unremarkable. No ventriculomegaly. Bones/joints: Unremarkable. No acute fracture. Soft tissues: There is a large right posterior scalp hematoma. Sinuses: Near-complete opacification of the left maxillary sinus with mucous. Mastoid air cells: Unremarkable as visualized. No mastoid effusion. IMPRESSION: 1. No acute intracranial finding. 2. There is a large right posterior scalp hematoma. 3. Near-complete opacification of the left maxillary sinus with mucous. This raises the suspicion for sinusitis. Electronically signed by: Liza Weber MD 05/27/25 20:26 PM Medications Administered Home Medications Unobtainable 05/27/25 [History Confirmed 05/27/25] Active Medications Acetaminophen (Acetaminophen Susp 325 Mg/10.15 Ml Udc) 650 mg PO Q6H PRN PRN Reason: temp > 37.5 Stop: 06/27/25 00:06 Fentanyl Citrate (Fentanyl Bolus From Bag) 50 mcg IV Q60M PRN PRN Reason: Pain or Agitation Stop: 06/11/25 00:00 Propofol (Diprivan) 1,000 mg in 100 mls @ 12.792 mls/hr IV .Q7H50M [facility]; Protocol Stop: 05/30/25 19:59 Last Titration: 05/27/25 21:54 Dose: 20 mcg/kg/min, 12.8 mls/hr Heparin Sodium/Dextrose (Heparin 75800 Unit/500 Ml D5w) 25,000 units in 500 mls @ 32 mls/hr IV .[id number] [facility]; Protocol Stop: 06/26/25 23:14 Last Admin: 05/28/25 01:02 Dose: 1,600 units/hr, 32 mls/hr Norepinephrine Bitartrate (Levophed/D5w) 4 mg in 250 mls @ 19.988 mls/hr IV .[id number] [facility]; Protocol Stop: 06/26/25 23:29 Last Admin: 05/28/25 00:25 Dose: 0.05 mcg/kg/min, 20 mls/hr Fentanyl Citrate (Fentanyl Citrate) 2,500 mcg in 250 mls @ 2.5 mls/hr IV .Q96H [facility]; Protocol Stop: 06/11/25 00:00 Last Admin: 05/28/25 00:26 Dose: 25 mcg/hr, 2.5 mls/hr Amiodarone HCl/Dextrose (Nexterone / D5w) 360 mg in 200 mls @ 33.333 mls/hr IV ONE ONE; Protocol Stop: 05/28/25 07:12 Miscellaneous (Icu Protocol For Hyperglycemia) 1 each N/A ACHS [facility] Stop: 05/30/25 07:29 Propofol (Propofol Bolus From Bag) 20 mg IV Q5M PRN PRN Reason: Sedation Stop: 05/30/25 19:59 Last Admin: 05/27/25 21:42 Dose: 10 mg ECG Additional Comments: Sinus tachycardiawith short DE Left bundle branch block Abnormal ECG When compared with ECG [id number] 19:40,(unconfirmed) Sinus rhythmhas replacedWide QRS tachycardia [facility] Procedure Codes (Charges) Skin and Soft Tissue Skin and Soft Tissue: 58186 Repair of wound or lesion Coding Level of Care Code 25062 CRITICAL CARE 1ST 30-74M Diagnoses Cardiac arrest I46.9 Left bundle branch block I44.7 Elevated LFTs R79.89 On mechanically assisted ventilation Z99.11 Laceration of head S01.91XA CPT Codes Skin and Soft Tissue - Skin and Soft Tissue: 13669 Repair of wound or lesion ([id number])
[2025-05-28] MEDS: NOREPINEPHRINE/D5W 4 MG/250 ML PLCT IV SCH (00:25)
[2025-05-28] MEDS: fentaNYL citrate 2,500 MCG/250 ML BAG IV SCH (00:26)
[2025-05-28] MEDS: NOREPINEPHRINE/D5W 4 MG/250 ML IV ONE (00:31)
[2025-05-28] MEDS: TETANUS IMMUNE GLOBULIN (HUMAN) 250 UNITS/ML SYR IM ONE (00:37)
[2025-05-28] MEDS: DIPHTHERIA/TETANUS TOX ADSORB VACCINE (Td) 0.5 ML SYR/VIAL IM ONE (00:39)
[2025-05-28] MEDS: POTASSIUM CHLORIDE / WTR 10 MEQ/100 ML PLCT IV SCH (01:01)
[2025-05-28] MEDS: HEPARIN 25000 UNIT/500 ML D5W 25,000 UNITS/500 ML BAG IV SCH (01:02)
--- NOTE | 2025-05-28 01:03 | Procedure Note ---
Procedure Note Date of Service May 28, 2025 Procedure: Internal Jugular Central Line Placement Proceduralist: Sudhir YO ([facility] Attending: Dr. Velarde Indication: Central Drug Administration, Poor Venous Access, Multiple Lab Draws Necessary, etc. Anesthesia: [x]Lidocaine 1% Emergent Consent was implied as patient is s/p cardiac arrest requiring multiple infusions, poor IV access and now on vasopressors. A time-out was completed verifying correct patient, procedure, site, posi tioning. Patients RIGHT Neck was scouted for appropriate site, the IJ was identified as well as carotid artery, IJ was easily collapsable, approriate target identified. The RIGHT NECK was then cleansed and draped in the typical sterile fashion using Chloraprep and maximal sterile barriers. The Internal Jugular Vein and Carotid Artery were identified again using ultrasound. The superficial tissue was anesthetized using 5 mL of 1% lidocaine without epinephrine under direct visualization with the ultrasound. After adequate anesthetization was achieved, the Internal Jugular vein was cannulated under direct ultrasound guidance using an introducer needle on a syringe. Good venous blood return was maintained prior to removal of syringe from introducer needle. Using Seldinger Technique, a guide wire was advanced through the introducer needle without resistance. The introducer needle was removed and ultrasound images were obtained of the guide wire within the Internal Jugular Vein. A small incision was made in penetrating fashion at the guide wire insertion site utilizing an 11 blade scalpel. The dilator was advanced to the vessel without resistance. The dilator was exchanged for the triple lumen catheter which was advanced into the vessel without resistance. The guide wire was removed intact from the catheter without issue. Claves were placed on each catheter tip with confirmation of good blood flow from each lumen. Each port was easily flushed with sterile saline. The catheter was placed at 18 cm and sutured in place. CHG impregnated tegaderm was applied to the catheter with careful attention to sterility. Patient tolerated procedure well. No immediate complications were met. Post procedure x-ray was completed, placement was appropriate and no pneumothorax was noted. Artery AND Vein visualized: YES Compressible Vein: YES Guidewire or Short Catheter seen in vein prior to dilation: YES . [facility] – [place] Procedure Codes (Charges) Tubes, Drains, and Vasc Access Procedure 1: Tubes, Drains, and Vasc Access: [id number] Insertion Of Non-tunneled Catheter Age 7 Yrs> Coding CPT Codes Tubes, Drains, and Vasc Access - Tubes, Drains, and Vasc Access: [id number] Insertion Of Non-tunneled Catheter Age 7 Yrs> ([id number]) Additional Codes Date of Service ([email or web address])
[2025-05-28] MEDS ORDERED: 0.2 MICRON FILTER SET 1 EACH IV ONE ×2 (01:13→07:26)
[2025-05-28] MEDS: ACETAMINOPHEN SUSP 325 MG/10.15 ML UDC PO PRN (01:30)
[2025-05-28 01:42] LABS: iSTAT Art Bld Gas Base Excess -5.0 meg/L (-9-1.8); iSTAT Art Bld Gas pCO2 Correct 32 mmHg (35-46); iSTAT Art Bld Gas pH Corrected 7.391 (7.35-7.45); iSTAT Arterial Blood Gas pO2 C 77
--- NOTE | 2025-05-28 02:19 | XRay Report ---
EXAM: XR chest 1V portable CLINICAL HISTORY: Central line and OG tube placement TECHNIQUE: An X-ray image of the chest is obtained in AP portable projection. COMPARISON: 05/27/2025, CR Chest FINDINGS: Pulmonary Parenchyma: Endotracheal tube is identified with tip is appropriately placed and seen 4.5 cm from vinicius Appropriately placed central venous catheter with tip at the cavoatrial junction Interval placement of nasogastric tube, extending below the left hemidiaphragm, appropriately placed however distal tip/fenestra is not visualized. Patchy opacification seen in both perihilar region Prominent vessels are seen in the lungs or in more marked in both hilar/perihilar region. left hilum appears prominent Minimal blunting of left costophrenic angle seen Right costophrenic angle appears normal Heart and Mediastinum: Heart size is borderline enlarged. No mediastinal widening or masses. Bony Thorax: Bony thorax appears intact without fractures or deformities. Soft Tissues: Soft tissues overlying the chest wall are unremarkable. IMPRESSION: 1. Appropriately placed endotracheal tube. 2. Appropriate central venous catheter 3. Interval placement of nasogastric tube extending below the left hemidiaphragm, however its distal tip is not visualized 4. Redemonstration of patchy opacification in both hilar, perihilar region and as well as prominent vessels. Findings raising the suspicion of pulmonary infection/edema. Clinical correlation and serum proBNP levels are suggested 5. Minimal blunting of left costophrenic angle evident in current examination may be due to overlying soft tissue shadow/ pleural thickening/ effusion. 6. Redemonstration of borderline cardiomegaly, however this is AP projection 7. Follow-up is advised Electronically signed by Eddy Anguiano 05-28-2025 02:19 AM
[2025-05-28] MEDS: Heparin IV Adult Wt-Based Standard *NO* INITIAL Bolus Protocol IV STA (02:37)
[2025-05-28] MEDS: LACTATED RINGER'S 1,000 ML IV ONE (02:37)
[2025-05-28] MEDS: AMIODARONE / D5W 360 MG/200 ML BAG IV ONE (02:37)
[2025-05-28] MEDS: ACETAMINOPHEN 1,000 MG/100 ML VIAL IV STA (02:38)
[2025-05-28] MEDS ORDERED: ONDANSETRON INJ 2 MG/ML 2 ML VIAL IV PRN (03:19)
[2025-05-28] MEDS: SODIUM CHLORIDE 0.9% 1,000 ML IV ONE (03:39)
[2025-05-28 05:01] LABS: Hematocrit (blood only) 38.0 % (42.0-52.0); Hemoglobin 11.9 g/dl (14.0-18.0); Mean Corpuscular Hemoglobin 29.8 pg (25.0-34.0); Mean Corpuscular Volume 95.0 fL (80.0-100.0); Platelet Count 112 K/uL (130-400); RDW Standard Deviation 51.3 fL (36.4-46.3); Red Blood Count 4.00 M/uL (4.70-6.10); White Blood Count 28.46 K/ul (4.8-10.8)
[2025-05-28 05:11] LABS: Alanine Aminotransferase 280.0 U/L (7-52); Albumin Globulin Ratio 1.2 (0.9-2); Alkaline Phosphatase 58.0 U/L (34-104); Anion Gap 10.0 (3-11); Bilirubin,Total 0.6 mg/dl (0.2-1.0); Blood Urea Nitrogen 24.0 mg/dl (6-23); Calcium 8.1 mg/dl (8.6-10.3); Carbon Dioxide 25.0 mmol/L (21-32); Chloride 108.0 mmol/L (98-107); Creatinine Clr Calc Pharmacy 65.1 ml/min; Globulin 3.0 gm/dl (2.5-4.0); Glucose 170.0 mg/dl (70-99(Fasting)); Magnesium 1.9 mg/dl (1.7-2.4); Potassium 3.4 mmol/L (3.5-5.1); Sodium 143.0 mmol/L (136-145); Total Protein 6.6 gm/dl (6.0-8.3)
[2025-05-28 05:27] LABS: INR 1.2 (0.9-1.1); Prothrombin Time 13.0 Seconds (9.0-12.0)
[2025-05-28 05:37] LABS: Immature Granulocytes # (auto) 0.37 K/uL (0.01-0.20); Immature Granulocytes % (auto) 1.3 %; Polychromasia 1+
[2025-05-28] MEDS: 4.5GM X1 IV STA (06:04)
[2025-05-28] MEDS: MAGNESIUM SULFATE / D5W 1 GM/100 ML BAG IV SCH (06:51)
[2025-05-28] MEDS: POTASSIUM CHLORIDE / WTR 20 MEQ/100 ML PLCT IV SCH (06:51)
[2025-05-28] MEDS: ICU ELECTROLYTE REPLACEMENT PROTOCOL SCH (06:52)
[2025-05-28 07:03] LABS: ANTI-Xa, UFH(UnfractionatedHep 0.43 IU/ml (0.3-0.7)
[2025-05-28] MEDS: POTASSIUM CHLORIDE 20 MEQ/15 ML UDC NG SCH (07:24)
[2025-05-28] MEDS: AMIODARONE / D5W 360 MG/200 ML BAG IV SCH (08:01)
--- NOTE | 2025-05-28 08:47 | XRay Report ---
EXAM: XR chest 1V portable CLINICAL HISTORY: eval lines/tubes/lung jose TECHNIQUE: An X-ray image of the chest is obtained in AP portable projection. COMPARISON: 05/28/2025 CR, at 00:14 [employer] FINDINGS: The endotracheal tube is identified with tip is appropriately placed and seen 5 cm from vinicius Appropriately placed central venous catheter with tip at the cavoatrial junction Nasogastric tube, extending below the left hemidiaphragm, appropriately placed however distal tip is not visualized. Pulmonary Parenchyma: Patchy opacification seen in both perihilar region Prominent vessels are seen in the lungs or in more marked in both hilar/perihilar region. Both hilum appear prominent Minimal blunting of left costophrenic angle seen Right costophrenic angle appears normal Heart and Mediastinum: Heart size is borderline. No mediastinal widening or masses. Bony Thorax: Bony thorax appears intact without fractures or deformities. Soft Tissues: Soft tissues overlying the chest wall are unremarkable. Multiple leads over chest wall and upper abdomen. IMPRESSION: 1. Appropriately placed endotracheal tube. 2. Appropriate central venous catheter 3. Appropriate placement of nasogastric tube extending below the left hemidiaphragm, however its distal tip is not visualized 4. Unchanged patchy opacification in both hilar, perihilar region and as well as prominent vessels. Findings raising the suspicion of pulmonary infection versus edema. Clinical and lab correlation are suggested 5. Unchanged minimal blunting of left costophrenic angle may be due to overlying soft tissue shadow/ pleural thickening/ effusion. 6. No significant changes from prior x ray done today Electronically signed by Eddy Anguiano 05-28-2025 08:47 AM
[2025-05-28] MEDS: PANTOprazole 40 MG in SYRINGE DAILY IV SCH (10:16)
--- NOTE | 2025-05-28 10:23 | Cardiology Consultation ---
Date of Consultation May 28, 2025 Assessment & Plan (1) Cardiac arrest: (2) Left bundle branch block: (3) Cardiomyopathy: Plan 1. Cardiac arrest: Although I have not seen the rhythm strips presumably he had a shockable rhythm which would be ventricular tachycardia or ventricular fibrillation and he did respond to cardioversion with ROSC. We do not know the etiology of this event, it is possible it is myocardial ischemia but probably more likely sarcoid related. If he recovers well he will need an ICD. 2. Left bundle branch block: His presenting electrocardiograms here show a tachycardia with a left bundle branch block pattern, although atrial activity is not obvious on his presenting electrocardiograms it was likely sinus tachycardia. Subsequently his heart rate has dropped consistent with sinus rhythm and his left bundle branch block remains. This is also likely sarcoid related and we do not know the duration. His brother is going to find prior electrocardiograms if available. 3. Cardiomyopathy: He has significant left ventricular dysfunction by echocardiography, based on his symptoms through his family this may not be acute but we do not know if he has had prior echocardiograms. The left ventricular dysfunction by echocardiography is more suggestive of sarcoid and ischemic heart disease but that may need to be investigated. If he recovers well he will need catheterization. He is from the [facility], some of this may be done in that area but that we will depend on his progress. History of Present Illness Reason for Consultation: Cardiac arrest Attending Physician: Francisca Bates MD History of Present Illness This is a 70-year-old male with no prior records here. Per family his only medical history is sarcoidosis and hypertension. He had a cardiac arrest at the [employer] football game on May 27, 2025, apparently he lost consciousness and this was witnessed by other football fans and CPR was initiated, EMS was able to defibrillate him after 3 shocks with ROSC. He was brought to the emergency room where he was unresponsive and intubated. Family was not present at this time. In the emergency room he was noted to have a left bundle branch block pattern and sinus tachycardia. He was started on amiodarone by the ambulance crew and that has been continued as an IV infusion. He is also on a heparin drip. His presenting electrocardiogram here shows a wide-complex tachycardia at 126 bpm, it is a normal axis left bundle branch pattern and appears to be sinus tachycardia not a ventricular rhythm. Another electrocardiogram done 40 minutes later shows a wide-complex tachycardia with similar morphology at 139 bpm. P waves are not obvious. His presenting high-sensitivity troponin was slightly elevated at 50, a another done 5 hours later is 2314 and the third 1 done 11 hours after presentation is 3355. This could be consistent with demand ischemia or a cardiac event. Today he remains intubated and sedated, I understand that he had some spontaneous movement when his sedation was weaned this morning but then he was resedated. I did talk to his brother who is a physician, he carries a diagnosis of sarcoid which was made with a lung biopsy, to his knowledge there is no known cardiac history. His brother is going to try to obtain an electrocardiogram and an echocardiogram if he has had them or any other cardiac studies. They do note that he has been slowing down markedly with his physical activity recently but to my knowledge this has not been evaluated. Allergies Allergy/AdvReac Type Severity Reaction Status Date / Time Unable to Assess Allergy Verified 05/27/25 20:04 Home Medications Medication Instructions Recorded Confirmed Type Unobtainable 05/27/25 05/27/25 History Patient History Medical History Sarcoid Social History Smoking Status: Unknown if ever smoked Hx Alcohol Use: Yes Hx Substance Use: No Preferred Language: Portuguese Communication Ability: intubated Communication Ability Comment: intubated and sedated Regional Sales Leader Required: No Beliefs That Will Affect Care: None Current Living Situation: Alone Other Information That Helps Us Care for You: No Feels Safe at Home: Yes Assistive Devices: None Review of Systems Review of Systems: Unobtainable due to cognitive status Physical Exam Physical Exam: Constitutional: Intubated and sedated, unresponsive. HEENT: Unremarkable on limited exam other than injury to the back of his head. Neck: No jugular venous distention, carotid pulses are normal and equal bilaterally without bruits. Pulmonary: Clear to auscultation bilaterally. Cardiac: Regular rhythm with no murmur, gallop or rub. Abdomen: Soft, nontender with normal bowel sounds. Extremities: No edema. Neurologic: Cannot be adequately evaluated. Skin: No rash, ecchymoses or petechiae. Results & Data Vital Signs (Past 12 Hours) Vital Signs Temp Pulse Pulse Resp BP BP Pulse Ox 05/28/25 07:34 74 16 96 05/28/25 06:15 37.4 C 75 20 109/65 97 05/28/25 06:03 37.4 C 77 20 97 05/28/25 06:00 93/53 L 05/28/25 05:45 37.5 C 63 19 98/49 L 99 05/28/25 05:33 37.5 C 66 22 92 05/28/25 05:30 104/61 05/28/25 05:27 37.5 C 65 22 95 05/28/25 05:18 37.5 C 68 22 95 05/28/25 05:17 94 H 05/28/25 05:15 104/56 L 05/28/25 05:00 100/57 L 05/28/25 04:30 37.7 C H 66 21 107/64 96 05/28/25 04:24 37.7 C H 66 23 95 05/28/25 04:03 37.7 C H 62 23 96 05/28/25 04:00 105/60 05/28/25 03:45 37.8 C H 65 24 95 05/28/25 03:45 107/61 05/28/25 03:44 05/28/25 03:39 37.8 C H 61 24 96 05/28/25 03:30 99/58 L 05/28/25 03:21 37.8 C H 62 26 H 96 05/28/25 03:16 126/82 05/28/25 03:15 37.9 C H 61 24 96 05/28/25 03:03 23 05/28/25 03:01 127/64 05/28/25 03:00 37.9 C H 63 23 96 05/28/25 02:46 144/83 H 05/28/25 02:45 37.9 C H 67 27 H 97 05/28/25 02:31 128/83 05/28/25 02:16 132/89 05/28/25 02:12 37.8 C H 25 H 98 05/28/25 02:06 37.7 C H 63 26 H 99 05/28/25 02:01 133/70 05/28/25 01:54 37.8 C H 68 25 H 100 05/28/25 01:51 37.7 C H 64 25 H 100 05/28/25 01:46 128/90 05/28/25 01:42 37.8 C H 79 24 100 05/28/25 01:30 37.8 C H 67 24 95/60 L 99 05/28/25 01:18 69 23 98 05/28/25 01:15 92/51 L 05/28/25 01:12 37.8 C H 72 22 99 05/28/25 01:02 87/56 L 05/28/25 01:00 37.8 C H 69 20 86/54 L 99 05/28/25 00:45 37.8 C H 98 H 23 96/66 L 97 05/28/25 00:42 05/28/25 00:36 91/67 L 05/28/25 00:33 37.9 C H 81 23 97 05/28/25 00:30 37.9 C H 82 20 89/67 L 98 05/28/25 00:27 37.9 C H 82 19 96 05/28/25 00:24 115/78 05/28/25 00:12 38.1 C H 79 24 97 05/28/25 00:06 38.1 C H 82 26 H 97/60 L 96 05/27/25 23:48 38.2 C H 84 26 H 100 05/27/25 23:45 113/73 05/27/25 23:37 93/63 L 05/27/25 23:36 38.1 C H 84 26 H 99 05/27/25 23:30 38.1 C H 87 24 79/53 L 98 05/27/25 23:25 38.2 C H 89 16 81/55 L 100 05/27/25 22:30 38.1 C H 94 H 23 95/66 L 99 O2 Del Method FiO2 05/28/25 07:34 30 05/28/25 06:15 05/28/25 06:03 05/28/25 06:00 05/28/25 05:45 05/28/25 05:33 05/28/25 05:30 05/28/25 05:27 05/28/25 05:18 05/28/25 05:17 05/28/25 05:15 05/28/25 05:00 05/28/25 04:30 05/28/25 04:24 05/28/25 04:03 05/28/25 04:00 05/28/25 03:45 05/28/25 03:45 05/28/25 03:44 30 05/28/25 03:39 05/28/25 03:30 05/28/25 03:21 05/28/25 03:16 05/28/25 03:15 05/28/25 03:03 05/28/25 03:01 05/28/25 03:00 05/28/25 02:46 05/28/25 02:45 05/28/25 02:31 05/28/25 02:16 05/28/25 02:12 05/28/25 02:06 05/28/25 02:01 05/28/25 01:54 05/28/25 01:51 05/28/25 01:46 05/28/25 01:42 05/28/25 01:30 05/28/25 01:18 05/28/25 01:15 05/28/25 01:12 05/28/25 01:02 05/28/25 01:00 05/28/25 00:45 05/28/25 00:42 30 05/28/25 00:36 05/28/25 00:33 05/28/25 00:30 05/28/25 00:27 05/28/25 00:24 05/28/25 00:12 05/28/25 00:06 05/27/25 23:48 05/27/25 23:45 05/27/25 23:37 05/27/25 23:36 05/27/25 23:30 05/27/25 23:25 Mechanical Vent 100 05/27/25 22:30 Laboratory Results Cardiac Enzymes 05/27/25 05/28/25 05/28/25 Range/Units 19:49 00:59 04:28 AST 244 H 154 H (13-39) U/L Troponin I High Sens 50.6 H* 2314.5 H* D (0-20) pg/ml B-Natriuretic Peptide 70 (0-100) pg/ml 05/28/25 Range/Units 06:32 AST (13-39) U/L Troponin I High Sens 3355.3 H* D (0-20) pg/ml B-Natriuretic Peptide (0-100) pg/ml Coagulation 05/27/25 05/27/25 05/28/25 Range/Units 19:49 20:40 04:28 PT Cancelled 12.4 H 13.0 H APTT Cancelled 24 B-Natriuretic Peptide 70 (0-100) pg/ml CBC 05/27/25 05/28/25 Range/Units 19:49 04:28 WBC 22.77 H 28.46 H (4.8-10.8) K/ul RBC 4.72 4.00 L (4.70-6.10) M/uL Hgb 14.1 11.9 L (14.0-18.0) g/dl Hct 43.2 38.0 L (42.0-52.0) % Plt Count 122 L 112 L (130-400) K/uL Neut # (Auto) 14.81 H 17.77 H (1.40-6.50) K/uL Lymph # (Auto) 4.17 H 1.76 (1.20-3.40) K/uL Bullock # (Auto) 2.44 H 8.48 H (0.11-0.59) K/uL Eos # (Auto) 0.16 0.03 (0.00-0.50) K/uL Baso # (Auto) 0.07 0.05 (0.00-0.20) K/uL Comprehensive Metabolic Panel 05/27/25 05/28/25 Range/Units 19:49 04:28 Sodium 144 143 (136-145) mmol/L Potassium 3.4 L 3.4 L (3.5-5.1) mmol/L Chloride 107 108 H (98-107) mmol/L Carbon Dioxide 22 25 (21-32) mmol/L BUN 21 24 H (6-23) mg/dl Creatinine 1.26 1.37 (0.6-1.4) mg/dl Glucose 164 H 170 H (70-99(Fasting)) mg/dl Calcium 9.2 8.1 L (8.6-10.3) mg/dl AST 244 H 154 H (13-39) U/L ALT 370 H 280 H (7-52) U/L Alkaline Phosphatase 76 58 (34-104) U/L Total Protein 8.1 6.6 (6.0-8.3) gm/dl Albumin 4.4 3.6 (3.4-5.0) gm/dl Intake and Output 05/27/25 05/28/25 05/28/25 22:59 06:59 14:59 Intake Total 19.734 / 1779.231 2906.016 / 3444.251 2492.140 / 1002.140 Output Total 1909 / 1909 Balance 19.734 / -462.250 -481.984 / -705.122 1161.140 / 1002.140 Intake: IV 19.734 / 5808.982 2108.016 / 5356.541 1689.140 / 1002.140 Acetaminophen 1,000 mg In 100 100 / 100 ml @ 400 mls/hr IV NOW STA Rx#: [id number] Amiodarone / D5w 360 mg In 200 200 / 200 ml @ 1 MG/MIN 33.333 mls/hr IV ONE ONE Rx#:[id number] Heparin 42109 Unit/500 ml D5w 200 / 200 25,000 units In 500 ml @ 1,600 UNITS/HR 32 mls/hr IV .[id number] [facility] Rx#:[id number] Lactated Ringer's 1,000 ml @ 1000 / 1000 999 mls/hr IV .Q1H1M [facility] Rx#: [id number] Magnesium Sulfate / D5w 1 gm In 177.5 / 177.5 100 ml @ 50 mls/hr IV Q2H [facility] Rx#:[id number] Norepinephrine/D5w 4 mg In 250 59.467 / 59.467 ml @ 0 MCG/KG/MIN IV .Q0M [facility] Rx#:[id number] Piperacillin/Tazobactam 4.5 gm 100 / 100 In 100 ml @ 200 mls/hr IV NOW STA Rx#:[id number] Potassium Chloride / Wtr 10 meq 200 / 200 In 100 ml @ 100 mls/hr IV Q1H [facility] Rx#:[id number] Potassium Chloride / Wtr 20 meq 173.333 / 173.333 In 100 ml @ 50 mls/hr IV Q2H [facility] Rx#:[id number] fentaNYL citrate 2,500 mcg In 18.416 / 18.416 36.000 / 36.000 250 ml @ 75 MCG/HR 7.5 mls/hr IV .[id number] [facility] Rx#:[id number] propofoL 1,000 mg In 100 ml @ 19.734 / 69.867 50.133 / 69.867 115.307 / 115.307 20 MCG/KG/MIN 12.792 mls/hr IV .Q7H50M [facility] Rx#:[id number] Oral 0 / 0 Output: Emesis 450 / 450 Urine Amount (Catheter) 1460 / 1460 Trent/Indwelling 1460 / 1460 Other: # Emeses 1 Weight 106.6 kg 96.4 kg Weight Measurement Method [facility] Diagnostic Findings Telemetry: Initially rapid wide-complex rhythm consistent with sinus tachycardia although P waves are hard to see, subsequently gradual rate drop and he is now in sinus rhythm at a controlled heart rate. PG Care Time/CCT Total # of Minutes Spent Total Time Spent with Patient: Total time spent is greater than 50% in coordination of care (as documented) at patient's floor/unit and/or counseling patient: Coding Level of Care Code 04091 INT INP/OBS CARE 3/75MIN Diagnoses Cardiac arrest I46.9 Left bundle branch block I44.7 Cardiomyopathy I42.9 Time Spent (min) 55
--- NOTE | 2025-05-28 11:49 | Hospitalist Progress Note ---
Date of Service May 28, 2025 Assessment & Plan (1) Cardiac arrest: (2) Left bundle branch block: (3) Laceration of head: (4) Elevated LFTs: (5) Rhinovirus infection: (6) Aspiration pneumonia: Plan This patient is a 70 y/o male with a history of sarcoidosis who is admitted a fter experiencing cardiac arrest in the [facility] [facility] football game. He had a VT/VF arrest and achieved ROSC after CPR and 3 defibrillations. He was intubated for GCS of 3 and also sustained a large laceration to the posterior right scalp when he collapsed which required 6 sylvia. He has evidence of aspiration pneumonia on CT after he vomited after intubation. He is febrile and tested positive for rhino/enterovirus. 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 He remains intubated and mechanically ventilated #Cardiac arrest/LBBB/elevated troponin/HFrEF/hypotension/ventricular arrhythmia- does have a history of sarcoidosis-could have infiltrative cardiomyopathy causing ventricular arrhythmia versus acute ischemic event although troponin peaked in the 3000's which is likely just due to CPR/cardiac contusion. Appreciate cardiology consultation. Unclear if LBBB is new. Echo with EF 25- 30%, no thrombus, multiple WMAs with thinning and variable contractility consistent with but not definitive for sarcoid heart disease. He does have dense coronary artery calcification seen on CT angiogram of the chest which was negative for PE. He is off Levophed and his hypotension was likely related either to cardiogenic shock or secondary to propofol - Continue to monitor on telemetry and keep electrolytes replete-gave magnesium and potassium IV - If he recovers, he will need an ICD placed - Will obtain old ECG through patient's PCP on Thursday-Brother has direct personal contact with the PCP - Will need cardiac catheterization after recovery from critical illness - Continue heparin drip - Discontinue amiodarone drip - Check lipid panel, [id number] starting aspirin and statin - Follow CBC, CMP, magnesium, phosphorus in the morning - If reduced EF persists, eventually will need guideline directed medical therapy #Aspiration pneumonia/Rhino virus/ventilator dependent respiratory failure/rib fractures-patient vomited after intubation but CT chest performed before that does show dependent airspace opacities which could be consistent with atelectasis or aspiration. Intubated for GCS of 3 after cardiac arrest. Spiked a fever and tested positive for rhinovirus - Continue Zosyn empirically - Ventilator management as per pulmonology-plan to wean sedation and extubate on 05/29 - Will need good pain control for rib fractures from CPR-give fentanyl for now - Continue propofol for sedation while on ventilator #Scalp laceration-suffered large laceration and hematoma to the posterior scalp when he collapsed. Washed out and stapled with 6 sylvia by ICU SALES REPRESENTATIVE [employer]. Tetanus vaccination given - Monitor for secondary wound infection and breakdown of skin given large hematoma - Ice to the area - Need scalp staple removal on 06/03 #Elevated LFTs-LFTs and INR elevated likely secondary to shock liver from hypotension and cardiac arrest. Also could be from viral infection - Follow LFTs - Stop amiodarone drip #Thrombocytopenia-platelets low on arrival at 122 and lower further today at 112. Could be from viral infection - Follow CBC #Rib fractures Fractures on anterior left side from 3rd6th ribs noted on chest CTA; no PTX Will likely need pain control once he is more awake #Sarcoidosis-as per the patient's brother, he had sarcoidosis proven on a lung biopsy many years ago but it has been controlled and he is not on medication for this - Will attempt to obtain old pulmonology records on Thursday DVT prophylaxis-heparin drip Disposition-continued stay in the ICU Admission and Anticipated Discharge Date Admission Date: May 27, 2025 Subjective Patient remains on the ventilator, sedation was weaned this morning and he apparently did wake up and was following some commands. Sedation was turned back on. I discussed his care with the rn school, the care taker, and his brother and 2 sisters in law at the bedside. He is weaned off vasopressors, spiked a fever overnight. His brother reports that he has had decreased exercise tolerance lately. The patient did also vomit overnight. Patient remains in normal sinus rhythm with normal rates with the bundle branch block on telemetry Physical Exam Constitutional: well developed, + lethargic and + mechanically ventilated Eyes: + anicteric sclerae and PERRL ENMT: ET and OG tubes in place Respiratory: Auscultation: + diminished lung sounds (At bases); no rales and no wheezes Mechanically ventilated Cardiovascular: Rate/Rhythm: regular rate and regular rhythm Heart Sounds: no murmur Extremities: + edema (Trace pitting edema of the legs bilaterally) Gastrointestinal (Abdomen): Inspection/Auscultation: abdomen normal to inspection and normal bowel sounds; abdomen not distended Percussion/Palpation: abdomen soft; abdomen nontender Musculoskeletal: Extremities: extremities normal to inspection Skin: no rashes, warm and dry Trauma: + hematoma (Large hematoma right posterior scalp with dried blood) Genitourinary: Trent catheter in place draining clear yellow urine Results & Data Results & Data Vital Signs (Past 12 Hours) Vital Signs Temp Pulse Resp BP Pulse Ox O2 Del Method FiO2 05/28/25 11:02 37.5 C 65 20 96 05/28/25 11:00 98/50 L 05/28/25 10:59 37.5 C 64 21 96 05/28/25 10:38 37.5 C 70 23 98 05/28/25 10:31 91/65 L 05/28/25 10:26 37.5 C 65 19 97 05/28/25 10:25 64 21 97 40 05/28/25 10:00 37.4 C 63 19 94 05/28/25 10:00 103/54 L 05/28/25 09:30 37.4 C 64 20 94 05/28/25 09:30 105/57 L 05/28/25 09:03 37.4 C 65 20 94 05/28/25 09:00 106/56 L 05/28/25 08:39 37.4 C 66 20 97 05/28/25 08:30 37.4 C 64 20 96 05/28/25 08:30 103/53 L 05/28/25 08:06 37.3 C 73 20 97 05/28/25 08:00 Mechanical Vent 40 05/28/25 08:00 40 05/28/25 07:45 37.4 C 73 20 96 05/28/25 07:45 102/55 L 05/28/25 07:34 74 16 96 30 05/28/25 07:33 37.3 C 74 20 96 05/28/25 07:30 99/61 L 05/28/25 07:06 37.3 C 75 20 96 05/28/25 07:00 37.3 C 74 19 96 05/28/25 07:00 103/62 05/28/25 06:15 37.4 C 75 20 109/65 97 05/28/25 06:03 37.4 C 77 20 97 05/28/25 06:00 93/53 L 05/28/25 05:45 37.5 C 63 19 98/49 L 99 05/28/25 05:33 37.5 C 66 22 92 05/28/25 05:30 104/61 05/28/25 05:27 37.5 C 65 22 95 05/28/25 05:18 37.5 C 68 22 95 05/28/25 05:17 94 H 05/28/25 05:15 104/56 L 05/28/25 05:00 100/57 L 05/28/25 04:30 37.7 C H 66 21 107/64 96 05/28/25 04:24 37.7 C H 66 23 95 05/28/25 04:03 37.7 C H 62 23 96 05/28/25 04:00 105/60 05/28/25 03:45 37.8 C H 65 24 95 05/28/25 03:45 107/61 05/28/25 03:44 30 05/28/25 03:39 37.8 C H 61 24 96 05/28/25 03:30 99/58 L 05/28/25 03:21 37.8 C H 62 26 H 96 05/28/25 03:16 126/82 05/28/25 03:15 37.9 C H 61 24 96 05/28/25 03:03 23 30 05/28/25 03:01 127/64 05/28/25 03:00 37.9 C H 63 23 96 05/28/25 02:46 144/83 H 05/28/25 02:45 37.9 C H 67 27 H 97 05/28/25 02:31 128/83 05/28/25 02:16 132/89 05/28/25 02:12 37.8 C H 25 H 98 05/28/25 02:06 37.7 C H 63 26 H 99 05/28/25 02:01 133/70 05/28/25 01:54 37.8 C H 68 25 H 100 05/28/25 01:51 37.7 C H 64 25 H 100 05/28/25 01:46 128/90 05/28/25 01:42 37.8 C H 79 24 100 05/28/25 01:30 37.8 C H 67 24 95/60 L 99 05/28/25 01:18 69 23 98 09/14/25 01:15 92/51 L 05/28/25 01:12 37.8 C H 72 22 99 05/28/25 01:02 87/56 L 05/28/25 01:00 37.8 C H 69 20 86/54 L 99 05/28/25 00:45 37.8 C H 98 H 23 96/66 L 97 05/28/25 00:42 30 05/28/25 00:36 91/67 L 05/28/25 00:33 37.9 C H 81 23 97 05/28/25 00:30 37.9 C H 82 20 89/67 L 98 05/28/25 00:27 37.9 C H 82 19 96 05/28/25 00:24 115/78 05/28/25 00:12 38.1 C H 79 24 97 05/28/25 00:06 38.1 C H 82 26 H 97/60 L 96 Laboratory Results CBC, anti-Xa anti-Xa, ABG, BMP, HgbA1c, LFTs, troponin, lipid panel reviewed PG Care Time/CCT Total # of Minutes Spent Total Time Spent with Patient: Total time spent is greater than 50% in coordination of care (as documented) at patient's floor/unit and/or counseling patient: Coding Level of Care Code 22033 SUB INP/OBS CARE 3/50MIN Diagnoses Cardiac arrest I46.9 Left bundle branch block I44.7 Laceration of head S01.91XA Elevated LFTs R79.89 Rhinovirus infection B34.8 Aspiration pneumonia J69.0
--- NOTE | 2025-05-28 12:14 | XCELERA ---
[id number] \\[id number]
[2025-05-28] MEDS: PIPERACILLIN/TAZOBACTAM 4.5 GM/100 ML BAG IV SCH (12:24)
[2025-05-28 13:12] LABS: Cholesterol 95.0 mg/dl (0-200); HDL Cholesterol 21.0 mg/dl; Triglycerides 118.0 mg/dl (0-150)
[2025-05-28 13:21] LABS: Hemoglobin A1C 5.3 % (4.5-5.6)
[2025-05-28 14:04] LABS: Chlamydia pneumoniae PCR Not Detected (NotDetected); Coronavirus 229E PCR Not Detected (NotDetected); Coronavirus CoV-2 (COVID19)PCR Not Detected (NotDetected); Coronavirus HKU1 PCR Not Detected (NotDetected); Coronavirus NL63 PCR Not Detected (NotDetected); Coronavirus OC43PCR Not Detected (NotDetected); Human Metapneumovirus PCR Not Detected (NotDetected); Parainfluenza Virus 1 PCR Not Detected (NotDetected); Parainfluenza Virus 2 PCR Not Detected (NotDetected); Parainfluenza Virus 3 PCR Not Detected (NotDetected); Parainfluenza Virus 4 PCR Not Detected (NotDetected); Respiratory Syncytial VirusPCR Not Detected (NotDetected); Rhinovirus/Enterovirus PCR DETECTED (NotDetected)
[2025-05-28] MEDS: LACTATED RINGER'S 1,000 ML IV SCH (15:12)
[2025-05-28] MEDS: ACETAMINOPHEN 1,000 MG/100 ML VIAL IV PRN (15:12)
--- NOTE | 2025-05-28 20:04 | Billing Data ---
Date of Service May 28, 2025 Coding Level of Care Code 44477 CRITICAL CARE
[2025-05-29 05:30] LABS: Alanine Aminotransferase 171.0 U/L (7-52); Albumin Globulin Ratio 1.3 (0.9-2); Alkaline Phosphatase 51.0 U/L (34-104); Anion Gap 6.0 (3-11); Bilirubin,Total 0.8 mg/dl (0.2-1.0); Blood Urea Nitrogen 24.0 mg/dl (6-23); Calcium 7.7 mg/dl (8.6-10.3); Carbon Dioxide 27.0 mmol/L (21-32); Chloride 107.0 mmol/L (98-107); Creatinine Clr Calc Pharmacy 60.8 ml/min; Globulin 2.6 gm/dl (2.5-4.0); Glucose 140.0 mg/dl (70-99(Fasting)); Magnesium 2.4 mg/dl (1.7-2.4); Potassium 3.3 mmol/L (3.5-5.1); Sodium 140.0 mmol/L (136-145); Total Protein 6.1 gm/dl (6.0-8.3)
[2025-05-29 05:37] LABS: ANTI-Xa, UFH(UnfractionatedHep 0.49 IU/ml (0.3-0.7)
[2025-05-29 05:55] LABS: Hematocrit (blood only) 32.9 % (42.0-52.0); Hemoglobin 10.2 g/dl (14.0-18.0); Mean Corpuscular Hemoglobin 29.4 pg (25.0-34.0); Mean Corpuscular Volume 94.8 fL (80.0-100.0); Platelet Count 98 K/uL (130-400); RDW Standard Deviation 53.3 fL (36.4-46.3); Red Blood Count 3.47 M/uL (4.70-6.10); White Blood Count 28.28 K/ul (4.8-10.8)
[2025-05-29 05:57] LABS: Basophilic Stippling 1+; Immature Granulocytes # (auto) 0.19 K/uL (0.01-0.20); Immature Granulocytes % (auto) 0.7 %; Polychromasia 1+
[2025-05-29] MEDS: POTASSIUM CHLORIDE / WTR 20 MEQ/100 ML PLCT IV SCH (07:29)
--- NOTE | 2025-05-29 07:54 | XRay Report ---
EXAM: XR chest 1V portable CLINICAL HISTORY: Eval lines/tubes/lung jose TECHNIQUE: X-ray images of the chest were obtained in AP projection. COMPARISON: Comparison to the study 05/28/2025. FINDINGS: The endotracheal tube is identified with tip is appropriately placed and seen 4.2 cm from vinicius Appropriately placed central venous catheter with tip at the cavoatrial junction Nasogastric tube, extending below the left hemidiaphragm, appropriately placed. Pulmonary Parenchyma: Again seen is patchy opacification seen in both perihilar region. Prominent vessels are seen in the lungs or in more marked in both hilar/perihilar region. Both hilum appear prominent Minimal blunting of left costophrenic angle is still seen Right costophrenic angle appears normal Heart and Mediastinum: Heart size is borderline. No mediastinal widening or masses. Bony Thorax: Bony thorax appears intact without fractures or deformities. Soft Tissues: Soft tissues overlying the chest wall are unremarkable. Multiple leads over chest wall and upper abdomen. IMPRESSION: 1. Stable appropriately placed endotracheal tube. 2. Stable appropriate central venous catheter 3. Stable appropriate placement of nasogastric tube extending below the left hemidiaphragm. 4. Unchanged patchy opacification in both hilar, perihilar region and as well as prominent vessels. Findings raising the suspicion of pulmonary infection versus edema. Clinical and lab correlation are suggested 5. Unchanged minimal blunting of left costophrenic angle may be due to overlying soft tissue shadow/ pleural thickening/ effusion. 6. No significant changes from prior x ray done today Electronically signed by Eddy Anguiano 05-29-2025 07:53 AM
--- NOTE | 2025-05-29 08:23 | Critical Care Consultation ---
Date of Consultation May 29, 2025 Assessment & Plan (1) HTN (hypertension): (2) Cardiac arrest: (3) Left bundle branch block: (4) Laceration of head: Plan Critically Ill: 70 YOM out of hospital cardiac arrest with ROSC following defibrillation x3. Neuro - Head laceration, sedation for mechanical ventilation, CAM ICU: [facility] - Patient with head strike that occurred when he collapsed- head CT non con- no acute hemorrhage/SDH/SAH, large scalp hematoma. - scalp laceration x2- closure of 1 scalp laceration with sylvia in the ICU, other laceration/abrasion will close by secondary closure secondary to hematoma and very irregular borders - sylvia can be removed after 7 days--- 20september - possible post concussive as well - If no improvement consider advanced imaging with MRI - Neuroprotection post arrest- normothermia- 35-37.5 -Had trial of extubation today. But recurrent episode of agitation and became tachypneic and tachycardic. So patient was reintubated to secure his airway -Discussion with family at bedside would like to transfer patient to ideally [facility]. Patient meets indication for transfer as we do not have a rheumatology service here that can manage the sarcoid, additionally should the patient require any aspect of cardiac surgery that is present at [facility] as well as [facility]. Cardiac - out of hospital cardiac arrest, LBBB, - Cardiac arrest with ROSC- likely ventricular in nature as AED did recommend shock- defibrillated x3 with return of ROSC - amiodarone 150mg bolus completed- will continue with amiodarone infusion until further workup evaluation completed - skin installer updated by admitting team- no urgent cath at this time - ECHo reviewed - Heparin infusion: Continue - Cause of arrest at this time is unclear- could possibly be related to hx of sarcoidosis- hopefully brother will be able to provide further information on this - manage electrolytes - Trend troponin and rhythm - Vasopressors at this time secondary to sedation and hypotension - LEVOphed - CVL placed - see separate procedure note Respiratory - Required emergent intubation following cardiac arrest, likely aspiration - Minimal vent settings at this time 7.4//73/19 - CTA chest negative for PE - Aspiration likely- follow clincally - daily SBT as appropriate - Rib fractures noted- no penumothorax GI - Elevated LFT - Elevated LFTS- possible secondary to hypoperfusion during arrest- INR 1.2 - follow daily - If LFTS trend up - will discontinue amiodarone - OGT to LIWS- NPO - initate feedings if unable to extubate in am RENAL/LYTES - No acute needs - maintain electrolytes as above - follow renal funciton - No acute needs - Trent to gravity while intubated and sedated ENDO - No acute needs - TSH 9.8- T4 06 - ICU hyperglycemic protocol HEME - No acute needs - HGB >8, transfuse for active bleeding, symptomatic - heparin as above ID - Aspiration, scalp laceration - follow clinically- at this time elevated WBC likely secondary to stress response - afebrile, will send blood cultures and urine cultures - Scalp laceration- irrigated with 3L saline, no debris noted on plant worker CT film or CT imaging - 1 laceration closed with sylvia as above - secondary closure on abrasion/laceration - TD and TIG given LINES/IV ACCESS - PIVx2, CVL, Trent, ETT, OGT Continue use of these lines DVT PROPHYLAXIS - SCDs, Heparin infusion DISPO: Patient being transferred to [facility] Supervising Physician Co-Signing Physician Notes Dr. Richards was resident physician during care of patient. I separately evaluated patient for bhatt portions of the history and the exam. I was present during the critical portion of medical decision making, and I discussed the case with the resident. I generally agree with the findings and plan. Patient liberated from the ventilator this morning has had persistent upper airway noise that was treated with 2 rounds of racemic epi, I am concerned given the history that there could be vocal cord issues. I have an order for positive pressure should he have respiratory distress. Low threshold to reintubate. Patient's neurostatus kind of wax and wanes he was able to pantomime this morning. Since sixth extubation intermittently following simple commands. Close observation in the ICU. Discussed briefly with cardiology. Continue heparin until okay to discontinue per cardiology obtain wound consult to evaluate scalp injuries especially wound that will be healing by secondary intention. Transition from Zosyn to ceftriaxone for 48 hours of coverage then will reassess. I have personally spent 60 minutes of critical care time in the direct manag ement of this patient. This is a life/limb threatening event. This includes time spent evaluating patient, direct bedside care, chart review, placing orders, interpretation of diagnostic studies, discussion with consultants, patient, and/or family members regarding treatment decisions, as well as other required patient management activities. This time is exclusive of all separately billable procedures, and teaching time and separate from and in addition to any other critical care service time. Update 11:00: Patient's mental status waxing and waning, not redirectable during episode of increased work of breathing. Transitioned to CPAP, I suspect there may be a component of a dysfunctional vocal cord as he received 2 racemic epi's and continued to have upper airway noise given his clinical history. At this time he is little bit more sedated on Precedex. Will allow patient to normalize then attempt to discontinue positive pressure ventilation. If upper airway noise persists and mental status does not improve I have a low threshold to reintubate for secure airway as the patient's episode of agitation might be secondary to an underlying vocal cord dysfunction with mild encephalopathy secondary to recent cardiac arrest and possible anoxia. Update 12:00, patient had recurrent episode of agitation and became tachypneic and tachycardic hypertensive. [place] it was safer for the patient to be intubated with a secure airway. Had discussion with family at bedside would like to transfer patient to ideally [facility]. Patient meets indication for transfer as we do not have a rheumatology service here that can manage the sarcoid, additionally should the patient require any aspect of cardiac surgery that is present at [facility] as well as [facility]. I have paged their team for an ICU transfer. Update 1230: Discussed case with Dr. Adam fountain brush assembler of [facility] surgery, [facility] team discussing case internally to facilitate transfer to one of the aforementioned facilities at this time. I have personally spent 30 minutes of critical care time in the direct management of this patient. This is a life/limb threatening event. This includes time spent evaluating patient, direct bedside care, chart review, placing orders, interpretation of diagnostic studies, discussion with consultants, patient, and/or family members regarding treatment decisions, as well as other required patient management activities. This time is exclusive of all separately billable procedures, and teaching time and separate from and in addition to any other critical care service time. History of Present Illness Reason for Consultation: Out of hospital cardiac arrest with ROSC Attending Physician: Francisca Bates MD History of Present Illness 70 YOM with no medical records available in our system or [employer] system, he is with one previous encounter noted for sarcoidosis. Patient was brought in by EMS following cardiac arrest at the football game. Per EMS report patient was seen walking and then collapsed striking his head, CPR was reported in progress with arrival of EMS. AED was applied and shocks were recommended. Patient received Defibrillations x3 with return of ROSC. He had an IGEL placed for to manage airway during this arrest, unclear if medications were administered other than amiodarone bolus. Patient was managed in the ER with replacement of Igel with endotracheal tube. He had CT scan of head, cervical spine, CTA of chest, and CXR post intubation. Patient was noted to be moving upper extremities on arrival to ER. Patient was noted to have head laceration to back of his head and large scalp hematoma on CT scan. Patient was then presented for admission by hospitalist service. ICU was consulted, recommended discussion with interventional cardiology as patient was presumably ventricular arrest and presented with LBBB unsure of chronicity. No plans at this time for urgent evaluation by interventional cardiology, will evaluate in am, recommends heparin infusion. Patient will be brought to the ICU for continued management of ventilator, hemodynamics, and continued supportive care. Allergies Allergy/AdvReac Type Severity Reaction Status Date / Time Unable to Assess Allergy Verified 05/27/25 20:04 Home Medications Medication Instructions Recorded Confirmed Type Unobtainable 05/27/25 05/27/25 History Patient History Medical History Sarcoid Social History Smoking Status: Unknown if ever smoked Hx Alcohol Use: Yes Hx Substance Use: No Preferred Language: Setswana Communication Ability: intubated Communication Ability Comment: intubated and sedated Exhaust Worker Required: No Beliefs That Will Affect Care: None Current Living Situation: Alone Other Information That Helps Us Care for You: No Feels Safe at Home: Yes Assistive Devices: None Review of Systems Review of Systems: As per HPI Physical Exam Physical Exam: Head: Laceration x2 to right scalp, abrasion with laceration and macerated edges hematoma right posterior Neuro: PEERLA brisk 3/2, did attempt to open eyes on arrival to ICU, not following commands, overbreathe ventilator and cough/gag on ETT, Chest: equal rise and fall of the chest, no accessory muscle use, no heaves or thrills, Clear to auscultation, on room air, Cardiac: Regular rate and rhythm, telemetry reviewed- LBB, skin cool and dry, cap refill <3 seconds, peripheral pulses +2 no JVD, no murmur, no edema GI: NABS x 4 quadrants, soft, nontender to palpation, no rebound, guarding or tenderness : Trent to gravity draining dilute urine Skin: no rash or erythema Results & Data Results & Data Vital Signs (Past 12 Hours) Vital Signs Temp Pulse Resp BP Pulse Ox O2 Del Method FiO2 05/29/25 06:00 37.3 C 95 H 20 116/64 95 05/29/25 05:45 37.3 C 96 H 19 95 05/29/25 05:39 37.3 C 97 H 18 96 05/29/25 05:30 104/58 L 05/29/25 05:21 37.3 C 94 H 20 95 05/29/25 05:18 37.3 C 96 H 20 95 05/29/25 05:15 112/59 L 05/29/25 05:00 66 05/29/25 04:45 122/65 05/29/25 04:39 37.3 C 88 18 92 05/29/25 04:33 37.3 C 86 14 96 05/29/25 04:30 109/60 05/29/25 04:24 37.3 C 90 20 91 05/29/25 04:18 37.3 C 92 H 18 91 05/29/25 04:15 123/61 05/29/25 04:00 134/66 05/29/25 04:00 40 05/29/25 03:54 37.3 C 79 20 90 05/29/25 03:45 37.3 C 79 15 119/57 L 94 05/29/25 03:33 37.3 C 72 18 94 05/29/25 03:30 129/60 05/29/25 03:30 66 17 95 40 05/29/25 03:24 37.4 C 71 16 94 05/29/25 03:18 37.4 C 71 18 91 05/29/25 03:15 119/54 L 05/29/25 03:00 119/66 05/29/25 02:57 37.3 C 67 20 95 05/29/25 02:48 37.3 C 67 15 96 05/29/25 02:45 119/53 L 05/29/25 02:39 37.3 C 68 17 96 05/29/25 02:30 106/53 L 05/29/25 02:18 37.3 C 65 17 96 05/29/25 02:15 106/56 L 05/29/25 02:15 37.3 C 66 21 96 05/29/25 02:09 37.3 C 66 24 96 05/29/25 02:00 102/48 L 05/29/25 01:51 37.3 C 69 23 95 05/29/25 01:45 96/49 L 05/29/25 01:30 119/61 05/29/25 01:15 37.1 C 68 17 120/66 96 05/29/25 01:00 36.5 C 68 18 117/60 97 05/29/25 00:45 37.3 C 66 19 108/55 L 97 05/29/25 00:30 37.3 C 65 20 97 05/29/25 00:00 37.4 C 65 19 106/56 L 97 05/29/25 00:00 30 05/28/25 23:54 37.4 C 64 19 97 05/28/25 23:30 105/47 L 05/28/25 23:30 37.4 C 65 20 97 05/28/25 23:15 96/52 L 05/28/25 23:02 98/49 L 05/28/25 23:00 90/50 L 05/28/25 23:00 37.4 C 65 16 97 05/28/25 22:54 17 30 05/28/25 22:45 37.4 C 65 17 97 05/28/25 22:33 37.4 C 64 19 96 05/28/25 22:30 95/52 L 05/28/25 22:12 37.4 C 65 19 97 05/28/25 22:00 96/51 L 05/28/25 22:00 37.4 C 66 17 96/51 L 96 05/28/25 21:48 Mechanical Vent 05/28/25 21:36 37.5 C 17 95 05/28/25 21:30 103/52 L 05/28/25 21:27 37.5 C 69 18 96 05/28/25 21:18 37.5 C 68 14 96 05/28/25 21:00 103/58 L 05/28/25 20:57 37.5 C 67 17 97 05/28/25 20:33 37.4 C 65 16 97 05/28/25 20:30 109/52 L 05/28/25 20:24 37.4 C 66 17 97 05/28/25 20:00 37.5 C 66 16 100/57 L 96 05/28/25 20:00 40 Coding Level of Care Code 69377 CRITICAL CARE EA ADD 30M Diagnoses HTN (hypertension) I10 Cardiac arrest I46.9 Left bundle branch block I44.7 Laceration of head S01.91XA
--- NOTE | 2025-05-29 08:25 | Billing Data ---
Date of Service May 29, 2025 Coding Level of Care Code 71401 CRITICAL CARE
[2025-05-29 08:38] VITALS: TEMP 99
[2025-05-29] MEDS: RACEPINEPHRINE 2.25% NEBU SOLN 0.5 ML VIAL ONE ×2 (09:59→10:00)
[2025-05-29] MEDS: RACEPINEPHRINE 2.25% NEBU SOLN 0.5 ML VIAL NEB STA (10:00)
--- NOTE | 2025-05-29 10:07 | Cardiology Progress Note ---
Date of Service May 29, 2025 Assessment & Plan (1) Cardiac arrest: (2) Left bundle branch block: (3) Cardiomyopathy: Plan 1. Cardiac arrest: Although I have not seen the rhythm strips presumably he had a shockable rhythm which would be ventricular tachycardia or ventricular fibrillation and he did respond to cardioversion with ROSC. We do not know the etiology of this event, it is possible it is myocardial ischemia but probably more likely sarcoid related. If he recovers well he will need an ICD. So far his neurologic status appears compromised. 2. Left bundle branch block: His presenting electrocardiograms here show a tachycardia with a left bundle branch block pattern, although atrial activity is not obvious on his presenting electrocardiograms it was likely sinus tachycardia. Subsequently his heart rate has dropped consistent with sinus rhythm and his left bundle branch block remains. This is also likely sarcoid related and we do not know the duration. His brother is going to find prior electrocardiograms if available. 3. Cardiomyopathy: He has significant left ventricular dysfunction by echocardiography, based on his symptoms through his family this may not be acute but we do not know if he has had prior echocardiograms. The left ventricular dysfunction by echocardiography is more suggestive of sarcoid and ischemic heart disease but that may need to be investigated. If he recovers well he will need catheterization. He is from the [facility], some of this may be done in that area but that we will depend on his progress. Admission and Anticipated Discharge Date Admission Date: May 27, 2025 Subjective Patient is now extubated, he is moving spontaneously and he is breathing on his own however he required BiPAP. He does not seem to be oriented at all and does not seem to extremis but does look toward me. Physical Exam Physical Exam: Constitutional: Awake, on BiPAP but not responding. HEENT: Unremarkable on limited exam other than injury to the back of his head. Neck: No jugular venous distention, carotid pulses are normal and equal bilaterally without bruits. Pulmonary: Clear to auscultation bilaterally. Cardiac: Regular rhythm with no murmur, gallop or rub. Abdomen: Soft, nontender with normal bowel sounds. Extremities: No edema. Neurologic: Does not seem to be completely intact. Skin: No rash, ecchymoses or petechiae. Results & Data Vital Signs (Past 12 Hours) Vital Signs Temp Pulse Resp BP Pulse Ox O2 Del Method FiO2 05/29/25 08:38 Mechanical Vent 40 05/29/25 08:30 108/55 L 05/29/25 08:12 37.2 C 70 17 98 Mechanical Vent 50 05/29/25 08:03 37.2 C 70 16 97 Mechanical Vent 50 05/29/25 08:00 113/58 L 05/29/25 08:00 40 05/29/25 07:45 121/61 05/29/25 07:30 75 17 96 40 05/29/25 07:24 37.2 C 87 17 95 Mechanical Vent 50 05/29/25 07:15 107/71 05/29/25 07:12 37.3 C 88 16 96 Mechanical Vent 50 05/29/25 07:00 107/57 L Mechanical Vent 05/29/25 06:00 37.3 C 95 H 20 116/64 95 05/29/25 05:45 37.3 C 96 H 19 95 05/29/25 05:39 37.3 C 97 H 18 96 05/29/25 05:30 104/58 L 05/29/25 05:21 37.3 C 94 H 20 95 05/29/25 05:18 37.3 C 96 H 20 95 05/29/25 05:15 112/59 L 05/29/25 05:00 66 05/29/25 04:45 122/65 05/29/25 04:39 37.3 C 88 18 92 05/29/25 04:33 37.3 C 86 14 96 05/29/25 04:30 109/60 05/29/25 04:24 37.3 C 90 20 91 05/29/25 04:18 37.3 C 92 H 18 91 05/29/25 04:15 123/61 05/29/25 04:00 134/66 05/29/25 04:00 40 05/29/25 03:54 37.3 C 79 20 90 05/29/25 03:45 37.3 C 79 15 119/57 L 94 05/29/25 03:33 37.3 C 72 18 94 05/29/25 03:30 129/60 05/29/25 03:30 66 17 95 40 05/29/25 03:24 37.4 C 71 16 94 05/29/25 03:18 37.4 C 71 18 91 05/29/25 03:15 119/54 L 09/15/25 03:00 119/66 05/29/25 02:57 37.3 C 67 20 95 05/29/25 02:48 37.3 C 67 15 96 05/29/25 02:45 119/53 L 05/29/25 02:39 37.3 C 68 17 96 05/29/25 02:30 106/53 L 05/29/25 02:18 37.3 C 65 17 96 05/29/25 02:15 106/56 L 05/29/25 02:15 37.3 C 66 21 96 05/29/25 02:09 37.3 C 66 24 96 05/29/25 02:00 102/48 L 05/29/25 01:51 37.3 C 69 23 95 05/29/25 01:45 96/49 L 05/29/25 01:30 119/61 05/29/25 01:15 37.1 C 68 17 120/66 96 05/29/25 01:00 36.5 C 68 18 117/60 97 05/29/25 00:45 37.3 C 66 19 108/55 L 97 05/29/25 00:30 37.3 C 65 20 97 05/29/25 00:00 37.4 C 65 19 106/56 L 97 05/29/25 00:00 30 05/28/25 23:54 37.4 C 64 19 97 05/28/25 23:30 105/47 L 05/28/25 23:30 37.4 C 65 20 97 05/28/25 23:15 96/52 L 05/28/25 23:02 98/49 L 05/28/25 23:00 90/50 L 05/28/25 23:00 37.4 C 65 16 97 05/28/25 22:54 17 30 05/28/25 22:45 37.4 C 65 17 97 05/28/25 22:33 37.4 C 64 19 96 05/28/25 22:30 95/52 L 05/28/25 22:12 37.4 C 65 19 97 Laboratory Results Cardiac Enzymes 05/28/25 05/28/25 05/29/25 Range/Units 11:46 17:48 04:42 AST 52 H (13-39) U/L Troponin I High Sens 3319.0 H* 2357.7 H* D (0-20) pg/ml Lipids 05/28/25 Range/Units 06:32 Triglycerides 118 (0-150) mg/dl Cholesterol 95 (0-200) mg/dl HDL Cholesterol 21 mg/dl Cholesterol/HDL Ratio 4.5 (0-5) CBC 05/29/25 Range/Units 04:42 WBC 28.28 H (4.8-10.8) K/ul RBC 3.47 L (4.70-6.10) M/uL Hgb 10.2 L (14.0-18.0) g/dl Hct 32.9 L (42.0-52.0) % Plt Count 98 L (130-400) K/uL Neut # (Auto) 17.62 H (1.40-6.50) K/uL Lymph # (Auto) 1.65 (1.20-3.40) K/uL [place] # (Auto) 8.76 H (0.11-0.59) K/uL Eos # (Auto) 0.02 (0.00-0.50) K/uL Baso # (Auto) 0.04 (0.00-0.20) K/uL Comprehensive Metabolic Panel 05/29/25 Range/Units 04:42 Sodium 140 (136-145) mmol/L Potassium 3.3 L (3.5-5.1) mmol/L Chloride 107 (98-107) mmol/L Carbon Dioxide 27 (21-32) mmol/L BUN 24 H (6-23) mg/dl Creatinine 1.40 (0.6-1.4) mg/dl Glucose 140 H (70-99(Fasting)) mg/dl Calcium 7.7 L (8.6-10.3) mg/dl AST 52 H (13-39) U/L ALT 171 H (7-52) U/L Alkaline Phosphatase 51 (34-104) U/L Total Protein 6.1 (6.0-8.3) gm/dl Albumin 3.5 (3.4-5.0) gm/dl Intake and Output 05/28/25 05/29/25 05/29/25 22:59 06:59 14:59 Intake Total 569.257 / 3540.682 1644.906 / 3540.682 413.134 / 413.134 Output Total 559 / 959 400 / 959 60 / 60 Balance 10.257 / 2581.682 1244.906 / 2581.682 353.134 / 353.134 Intake: IV 569.257 / 3540.682 1644.906 / 3540.682 413.134 / 413.134 Acetaminophen 1,000 mg In 100 100 / 100 ml @ 400 mls/hr IV Q8H PRN Rx#: [id number] Heparin 19871 Unit/500 ml D5w 279.467 / 928.000 448.533 / 928.000 45.333 / 45.333 25,000 units In 500 ml @ 1,600 UNITS/HR 32 mls/hr IV .[id number] [facility] Rx#:[id number] Lactated Ringer's 1,000 ml @ 80 972 / 972 mls/hr IV .[id number] [facility] Rx#: [id number] Norepinephrine/D5w 4 mg In 250 0 / 0 66.134 / 66.134 ml @ 0 MCG/KG/MIN IV .Q0M [facility] Rx#:[id number] Piperacillin/Tazobactam 4.5 gm 90.833 / 190.833 100 / 190.833 100 / 100 In 100 ml @ 25 mls/hr IV Q8H [facility] Rx#:[id number] Potassium Chloride / Wtr 20 meq 72.5 / 72.5 In 100 ml @ 50 mls/hr IV Q2H [facility] Rx#:[id number] fentaNYL citrate 2,500 mcg In 33.25 / 81.250 61.167 / 61.167 250 ml @ 50 MCG/HR 5 mls/hr IV .Q50H [facility] Rx#:[id number] propofoL 1,000 mg In 100 ml @ 65.707 / 336.214 124.373 / 336.214 68.000 / 68.000 16 mls/hr IV .Q6H15M [facility] Rx#: [id number] Oral 0 / 0 Output: Urine Amount (Catheter) 559 / 959 400 / 959 60 / 60 Trent/Indwelling 559 / 959 400 / 959 60 / 60 Other: Weight 98.8 kg Weight Measurement Method Built in [facility] Diagnostic Findings Telemetry: Sinus rhythm and sinus tachycardia, no arrhythmia. PG Care Time/CCT Total # of Minutes Spent Total Time Spent with Patient: Total time spent is greater than 50% in coordination of care (as documented) at patient's floor/unit and/or counseling patient: Coding Level of Care Code 94097 SUB INP/OBS CARE 235MIN Diagnoses Cardiac arrest I46.9 Left bundle branch block I44.7 Cardiomyopathy I42.9
[2025-05-29] MEDS ORDERED: STAT IV Infusion **Titration per Protocol STA ×2 (10:42→12:27)
[2025-05-29] MEDS: dexMEDEtomidine 200 MCG/50 ML BAG IV SCH (11:15)
[2025-05-29] MEDS: fentaNYL citrate 2,500 MCG/250 ML BAG IV SCH (11:35)
[2025-05-29] MEDS: NOREPINEPHRINE/D5W 4 MG/250 ML PLCT IV SCH (11:49)
--- NOTE | 2025-05-29 12:04 | Procedure Note ---
Procedure Note Date of Service May 29, 2025 Procedure Date: Noted above Procedure: Endotracheal intubation Pre-procedure Diagnosis: Acute encephalopathy secondary to possible anoxic injury secondary to cardiac arrest and respiratory failure Post-procedure Diagnosis: same as above Prior to Procedure: Informed Consent: emergent Attending Staff: Seven Dover DO The identity of the patient was confirmed and a bedside time out was performed. Description of Procedure: Patient was evaluated and required intubation for impending respiratory failure. The patient was prepared in the usual fashion. A video laryngoscope was used. A 8 mm inner diameter endotrachial tube was placed endotracheally to 26 cm at the teeth. A grade 1 view was obtained. The patient was sedated with fentanyl and etomidate, thereby allowing spontaneous respiration. During aspiration patient had bilateral paradoxical vocal cord movement of the upper half of the true vocal cords, the posterior half remains slightly apart allowing for air entry. The endotracheal tube was noted to pass through the vocal cords. Chest rise was bilateral. Bilateral breath sounds were heard without air sounds in the abdomen. Mist was noted in the endotracheal tube. End-tidal CO2 measurement was positive. Chest x-ray shows proper endotracheal tube placement. Complications: None Findings: Not applicable Specimens: Not applicable Estimated blood loss: Zero [facility] [place] Codes (Charges) Resuscitation Resuscitation: 77213 Endotracheal Intubation, emergency Coding CPT Codes Resuscitation - Resuscitation: 02216 Endotracheal Intubation, emergency ([id number]) Additional Codes Date of Service (PG.SURGERY)
[2025-05-29 12:18] VITALS: RESP 19; O2SAT 92
[2025-05-29] MEDS ORDERED: PROPOFOL BOLUS FROM BAG IV PRN (12:29)
[2025-05-29] MEDS: ETOMIDATE 2 MG/ML 20 ML VIAL IV ONE ×2 (12:37→12:38)
[2025-05-29] MEDS: MoRPHine SULFATE 2 MG/ML CARP IV STA (12:37)
[2025-05-29] MEDS: ROCURONIUM BROMIDE 10 MG/ML 5 ML VIAL IV ONE (12:38)
[2025-05-29] MEDS: MoRPHine SULFATE 4 MG/ML 1 ML CARP\\VIAL ONE (12:38)
[2025-05-29] MEDS: cefTRIAXone SODIUM 2,000 MG/50 ML BAG IV SCH (12:39)
--- NOTE | 2025-05-29 12:42 | XRay Report ---
XR chest 1V portable CLINICAL HISTORY: intubation COMPARISON STUDY: 05/29/2025 FINDINGS: Endotracheal tube tip is stable just below the thoracic inlet. Right central catheter tip i s just above the cavoatrial junction. There is stable mild cardiomegaly with mild pulmonary vascular congestion. Stable diffuse interstitial and faint patchy pulmonary opacities. No pleural effusion or pneumothorax seen. IMPRESSION: Stable exam. ACT 112: Negative or not required by law. Electronically signed by: López Oliver M.D. 05/29/2025 12:41 PM
--- NOTE | 2025-05-29 13:21 | Discharge Summary ---
Discharge Summary Date of Service May 29, 2025 Principal Dx & Hospital Course #1 = Principal Diagnosis (1) Cardiac arrest: (2) Left bundle branch block: (3) Laceration of head: (4) Rhinovirus infection: Plan This patient is a 70 y/o male with a history of sarcoidosis who is admitted after experiencing cardiac arrest in the [place] [employer] football [place]. He had a VT/VF arrest and achieved ROSC after CPR and 3 defibrillations. He was intubated for GCS of 3 and also sustained a large laceration to the posterior right scalp when he collapsed which required 6 sylvia. He has evidence of aspiration pneumonia on CT after he vomited after intubation. He is febrile and tested positive for rhino/enterovirus. 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 He remains intubated and mechanically ventilated after a failed trial of extubation with paradoxical vocal cord dysfunction on the morning of 05/29. #Cardiac arrest/LBBB/elevated troponin/HFrEF/hypotension/ventricular arrhythmia- does have a history of sarcoidosis-could have infiltrative cardiomyopathy causing ventricular arrhythmia versus acute ischemic event although troponin peaked in the 3000's which could also be due to CPR/cardiac contusion. Appreciate cardiology consultation. Unclear if LBBB is new. Echo with EF 25- 30%, no thrombus, multiple WMAs with thinning and variable contractility consistent with but not definitive for sarcoid heart disease. He does have dense coronary artery calcification seen on CT angiogram of the chest which was negative for PE. He is off Levophed and his hypotension was likely related either to cardiogenic shock or secondary to propofol-back on Levophed at the time of transfer due to sedation induced hypotension - Continue to monitor on telemetry and keep electrolytes replete-gave magnesium and potassium IV as needed - If he recovers, he will need an ICD placed - Need to obtain old ECG through patient's PCP to see if LBBB old or new - Will need cardiac catheterization after recovery from critical illness - Continue heparin drip - Discontinued amiodarone drip started after cardiac arrest - lipid panel, HgbA1c normal-consider starting aspirin and statin for CAD - Follow CBC, CMP, magnesium, phosphorus in the morning - If reduced EF persists, eventually will need guideline directed medical therapy - Transferring to tertiary care center #Aspiration pneumonia/Rhino virus/ventilator dependent respiratory failure/rib fractures-patient vomited after intubation but CT chest performed before that does show dependent airspace opacities which could be consistent with atelectasis or aspiration. Intubated for GCS of 3 after cardiac arrest. Spiked a fever and tested positive for rhinovirus. Was extubated on the morning of 05/29 and reintubated for vocal cord dysfunction. He also was not neurologically completely intact possibly due to residual sedation. - Continue Zosyn empirically - Ventilator management as per pulmonology/ICU - Will need good pain control for rib fractures from CPR-give fentanyl as needed - Continue propofol for sedation while on ventilator and Levophed for sedation induced hypotension #Scalp laceration-suffered large laceration and hematoma to the posterior scalp when he collapsed. Washed out and stapled with 6 sylvia by ICU PRESENTATION DESIGNER. Tetanus vaccination given - Monitor for secondary wound infection and breakdown of skin given large hematoma - Ice to the area - Need scalp staple removal on 06/03 #Elevated LFTs-LFTs and INR elevated likely secondary to shock liver from hypotension and cardiac arrest. LFTs improving on the day of discharge. Also could be from viral infection - Follow LFTs - Stopped amiodarone drip #Thrombocytopenia-platelets low on arrival at 122 and lower at 98 on the day of discharge. Could be from viral infection - Follow CBC #Rib fractures Fractures on anterior left side from 3rd6th ribs noted on chest CTA; no PTX Will likely need pain control once he is more awake #Sarcoidosis-as per the patient's brother, he had sarcoidosis proven on a lung biopsy many years ago but it has been controlled and he is not on medication for this - Need to obtain old pulmonology records DVT prophylaxis-heparin drip Disposition-transfer from ICU to ICU in [facility]. Needs rheumatology evaluation and further cardiac evaluation Admission HPI Per Admitting Provider Patient is a 70-year-old male with no known medical history save for hypertension endorsed by patient's brother who came to the emergency department via EMS after being found in cardiac arrest in a [employer] game. Patient had been walking in his usual state of health earlier in the evening, and then suddenly fainted with impact to posterior aspect of his head. Someone noticed him fall and went to check on him and found that he had no pulse, and immediately started CPR. After EMS arrived, patient was defibrillated x 3 after which ROSC was obtained and patient transported to emergency department. History is limited as patient is unresponsive and mechanically ventilated. Patient alone in ED. Patient has a brother (who is a physician) who will be driving over from [place] and another brother coming from [place]. He had another brother that unfortunately approximately a month ago. Labs/Imaging: CBC with leukocytosis of 22.77 with neutrophilic predominance, hemoglobin of 14.1, platelets of 122. CMP without significant electrolyte abnormality save for mild hypokalemia, creatinine 1.26. Blood sugar 164. Magnesium of 2.3. AST elevated at 244, ALT also elevated at 370, normal alk phos. TSH elevated at 9.899 and free T4 of 0.61. Troponin elevated at 50.6 with ~5-hour repeat showing 2314.5. C-spine CT unremarkable. Chest CTA w/o PE but showing possible dense coronary artery calcification, possible pulmonary edema and rib fractures on the anterior left side from 3rd6th ribs. Head CT without acute changes/hemorrhage/SAH, and showing right posterior scalp hematoma. Discharge Exam Constitutional well developed, + lethargic and + mechanically ventilated Eyes + anicteric sclerae Respiratory Auscultation: + diminished lung sounds (At bases); no rales and no wheezes Cardiovascular Rate/Rhythm: regular rate and regular rhythm Heart Sounds: no murmur Extremities: + edema (Trace pitting edema of the legs bilaterally) Gastrointestinal (Abdomen) Inspection/Auscultation: abdomen normal to inspection and normal bowel sounds; abdomen not distended Percussion/Palpation: abdomen soft; abdomen nontender Musculoskeletal Extremities: extremities normal to inspection Skin no rashes, warm and dry Trauma: + hematoma (Large hematoma right posterior scalp with dried blood) Discharge Plan Discharge Items Patient Disposition: Transfer Acute Care Hospital Reason For Visit: CARDIAC ARREST Discharge Diagnosis: Ventilator dependent respiratory failure Cardiac arrest from V-fib/V. 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 NSTEMI Thrombocytopenia Shock liver Aspiration pneumonia Rhino/enterovirus infection Posterior scalp laceration with sylvia in place and hematoma Condition on Discharge: Critical Activity: As commented below Exercise/Sports: Rest today Non-emergency contact: Primary Care Provider Call non-emergency contact if: you have any medication questions Follow-up/Referrals: POLLO SCHWARTZ [Other] Diet: Nothing by Mouth Diet Comment: OG tube in place, no tube feeds yet Addtl Attending Provider Instructions: Transferred to [facility] Pending Studies at Discharge: Yes (Blood cultures) Stand-Alone Forms: [employer] Skilled Items Patient informed of condition?: No DNR: No Discharge Level of Care: Other Communicable Disease: Yes Discharge Prognosis: Deteriorating Lines: [facility] Urinary Catheter: Yes Medications and DC Order Prescriptions: No Action Unobtainable Rx Instructions: PT UNABLE TO ANSWER QUESTIONS AT THIS TIME. Discharge Orders: Discharge Order (Routine); Ordered 05/29/25 Ordered By: Francisca Bates Admission Data Admit Date/Time: 05/27/25 21:48 Attending Provider: Francisca Bates Admit Provider: Isiah Sam Primary Care Provider: POLLO SCHWARTZ Other Providers: Hunter Velarde; Ton Abernathy; Isaih Sam Hospital Stay Data Consultations 05/27/25 21:48 Consult Apartment Coordinator Routine 05/27/25 21:58 Consult Cardiology Routine 05/27/25 22:13 ED Decision to Admit Stat 05/29/25 13:12 Burn CD for patient Stat Diagnostic Imagining Performed 05/27/25 19:59 CT angio chest PE protocol Stat CT cervical spine wo con Stat CT head/brain wo con Stat Pending Results Patient Have Any Pending Studies at Discharge: Yes (Blood cultures) Discharge Instructions Given to Patient (Per Discharging Provider) Transferred to [facility] Total Time Total Time Spent Total Time Spent (In Minutes): 45 minutes Total Time Includes: Examination of the Patient, Discharge Planning, Medication Reconciliation and Communication With Other Providers (Apartment Coordinator) Coding Level of Care Code 96314 INP/OBS DISCH >30 MIN Diagnoses Cardiac arrest I46.9 Left bundle branch block I44.7 Laceration of head S01.91XA Rhinovirus infection B34.8
[2025-05-29 13:56] VITALS: BP 103/55
[2025-05-29 14:21] VITALS: PULSE 68
--- NOTE | 2025-05-29 15:33 | Electrocardiogram Report ---
Test Reason : Blood Pressure : */* mmHG Vent. Rate : 126 BPM Atrial Rate : * BPM P-R Int : * ms QRS Dur : 152 ms QT Int : 316 ms P-R-T Axes : * 12 205 degrees QTcB Int : 457 ms Poor data quality, interpretation may be adversely affected Wide QRS tachycardia , suspect sinus tach with LBBB Abnormal ECG No previous ECGs available Confirmed by Ton Abernathy ([id number]) on 05/29/2025 3:32:28 PM Referred By: REFERRED SELF Confirmed By: Ton Abernathy
--- NOTE | 2025-05-29 15:35 | Electrocardiogram Report ---
Test Reason : Blood Pressure : */* mmHG Vent. Rate : 139 BPM Atrial Rate : 139 BPM P-R Int : 96 ms QRS Dur : 164 ms QT Int : 362 ms P-R-T Axes : * 37 228 degrees QTcB Int : 550 ms Sinus tachycardia with short [place] Left bundle branch block Abnormal ECG When compared with ECG of 27-May-2025 19:40, (unconfirmed) No significant change Confirmed by Ton Abernathy ([id number]) on 05/29/2025 3:35:20 PM Referred By: REFERRED SELF Confirmed By: Ton Abernathy
[2025-05-29 19:23] LABS: A calco-baum cmplx NotReported Not Detected (NotDetected); Bact fragilis Not Reported Not Detected (NotDetected); Blood Culture Id Panel See PCR Comment (NotDetected); C auris Not Reported Not Detected (NotDetected); Calbicans Not Reported Not Detected (NotDetected); Candida glabrata Not Reported Not Detected (NotDetected); Candida krusei Not Reported Not Detected (NotDetected); Cneoformans/gatti Not Reported Not Detected (NotDetected); Cparapsilosis Not Reported Not Detected (NotDetected); Ctropicalis Not Reported Not Detected (NotDetected); E cloacae compx Not Reported Not Detected (NotDetected); Efaecalis Not Reported Not Detected (NotDetected); Efaecium Not Reported Not Detected (NotDetected); Enterobacterales Not Reported Not Detected (NotDetected); Escherichia coli Not Reported Not Detected (NotDetected); H influenzae Not Reported Not Detected (NotDetected); K aerogenes Not Reported Not Detected (NotDetected); Koxytoca Not Reported Not Detected (NotDetected); Kpneumoniae grp Not Reported Not Detected (NotDetected); Lmonocyt Not Reported Not Detected (NotDetected); N meningitidis Not Reported Not Detected (NotDetected); P aeruginosa Not Reported Not Detected (NotDetected); Proteus spp Not Reported Not Detected (NotDetected); Salmonella spp Not Reported Not Detected (NotDetected); Staph lugdunensis Not Reported Not Detected (NotDetected); Staph spp. Not Reported DETECTED (NotDetected); Staphaureus Not Reported Not Detected (NotDetected); Staphepi Not Reported Not Detected (NotDetected); Stenmaltophilia Not Reported Not Detected (NotDetected); Strep agal(GrpB) Not Reported Not Detected (NotDetected); Strep pneum Not Reported Not Detected (NotDetected); Strep pyog (GrpA) Not Reported Not Detected (NotDetected); Strep spp Not Reported Not Detected (NotDetected)
[2025-05-29 19:33] LABS: Staphylococcus spp. DETECTED (NotDetected)
--- NOTE | 2025-05-29 19:55 | Communication Note ---
Date of Service: May 29, 2025 Blood culture result- notified after patient discharged to another facility - Blood culture- aerobic bottle 1/2- GPC- Staph SPP - Results phoned to [facility] K[facility]IGH YO [facility]
== END 2025-05-29 14:41 | disposition short-term general hospital (02) | DRG 296 ==
LOC: SUATTDRO → ED 19:33 → 1E 21:48 → SUATTDRO 21:48 → 1E 23:25